=== PATIENT | female | born 1960 | race Caucasian/White ===

== ENCOUNTER → 2017-03-15 | Outpatient (CLI) | payer BC ==
--- NOTE | 2017-03-23 09:09 | MM ---
Reason for exam: screening (asymptomatic). Last mammogram was performed 2 years and 4 months ago. Physical Findings: A clinical breast exam by your physician is recommended on an annual basis and results should be correlated with mammographic findings. MG 3D Screening Mammo W/Cad Bilateral CC and MLO view(s) were taken. Prior study comparison: November 02, 2014, mammogram, performed at [facility]. October 06, 2013, mammogram, performed at [facility]. There are scattered fibroglandular densities. Asymmetric breast tissue in the left breast. No significant changes when compared with prior studies. ASSESSMENT: Benign, BI-RAD 2 RECOMMENDATION: Routine screening mammogram of both breasts in 1 year.
== END | disposition home or self-care (01) ==
LOC: RADMAMWWP 09:39
PROVIDERS: ATTEND Family Medicine
DX: Z12.31 Encounter for screening mammogram for malignant neoplasm of breast (principal)
CPT/HCPCS: 77063; G0202

== ENCOUNTER → 2018-03-22 | Outpatient (CLI) | payer BC ==
--- NOTE | 2018-03-22 14:46 | MM ---
Reason for exam: screening (asymptomatic). Last mammogram was performed 1 year ago. History: Patient is postmenopausal and had first child at age 36. Physical Findings: A clinical breast exam by your physician is recommended on an annual basis and results should be correlated with mammographic findings. MG Screening Mammo w CAD Bilateral CC and MLO view(s) were taken. Prior study comparison: March 15, 2017, bilateral MG 3d screening mammo w/cad. November 02, 2014, mammogram, performed at [facility]. The breast tissue is heterogeneously dense. This may lower the sensitivity of mammography. There is no discrete abnormality. No significant changes when compared with prior studies. ASSESSMENT: Negative, BI-RAD 1 RECOMMENDATION: Routine screening mammogram of both breasts in 1 year.
== END | disposition home or self-care (01) ==
LOC: RADMAMWWP 09:57
PROVIDERS: ATTEND Family Medicine
DX: Z12.31 Encounter for screening mammogram for malignant neoplasm of breast (principal)
CPT/HCPCS: 77067

== ENCOUNTER → 2019-05-25 | Outpatient (CLI) | payer OTHER ==
--- NOTE | 2019-05-29 16:58 | MM ---
Reason for exam: screening (asymptomatic). Last mammogram was performed 1 year and 2 months ago. History: Patient is postmenopausal and had first child at age 36. MG Screening Mammo w CAD Bilateral CC and MLO view(s) were taken. Prior study comparison: March 22, 2018, bilateral MG screening mammo w CAD. March 15, 2017, bilateral MG 3d screening mammo w/cad. There are scattered fibroglandular densities. Chronic nodularity left breast. No significant new finding when compared with prior studies. ASSESSMENT: Negative, BI-RAD 1 RECOMMENDATION: Routine screening mammogram of both breasts in 1 year.
== END | disposition home or self-care (01) ==
LOC: RADMAMWWP 08:59
PROVIDERS: ATTEND Family Medicine
DX: Z12.31 Encounter for screening mammogram for malignant neoplasm of breast (principal)
CPT/HCPCS: 77067

== ENCOUNTER 2019-05-30 08:58 | Day surgery (SDC) | payer OTHER ==
[2019-05-25 14:17] VITALS: BMI 26.4
[~2019-05-30 08:58] MED LIST: LACTATED RINGERS 1,000 ML IV SCH; LIDOCAINE 1% 20 ML VIAL (10MG/ML) FOR IV START INTRADERMA PRN
[2019-05-30 09:56] VITALS: RESP 16; TEMP 98
[2019-05-30] MEDS ORDERED: LIDOCAINE 1% INJ 10MG/ML (20 ML MDV) ONE (11:15)
[2019-05-30] MEDS ORDERED: PROPOFOL 10 MG/ML 20 ML VIAL IV ONE (11:15)
--- NOTE | 2019-05-30 11:32 | P.PCN ---
Date of Procedure: 05/30/19 Procedure(s) Performed: BRIEF HISTORY: Patient is a 58-year-old pleasant 8 female, scheduled for an elective colonoscopy as a part of screening for colorectal neoplasia. PROCEDURE PERFORMED: Colonoscopy. PREOPERATIVE DIAGNOSIS: Screening for colon cancer. IV sedation per Anesthesia. PROCEDURE: After informed consent was obtained, the patient, was brought into the endoscopy unit. IV sedation was administered by Anesthesia under continuous monitoring. Digital rectal examination was normal. Initially the Olympus CF-160 flexible video colonoscope was then inserted in the rectum, gradually advanced into the cecum without any difficulty. Careful examination was performed as the scope was gradually being withdrawn. Ileocecal valve and the appendiceal orifice were visualized and appeared normal. Prep was excellent. Mucosa of the cecum, ascending colon, transverse colon, descending colon, sigmoid colon, and rectum appeared normal. Scattered sigmoidal diverticula seen. Retroflexion was performed in the rectum and no lesions were seen. The patient tolerated the procedure well. IMPRESSION: Normal-appearing colon from rectum to cecum with no evidence of colorectal neoplasia. Scattered sigmoid diverticulosis. RECOMMENDATIONS: Findings of this examination were discussed with the patient as well as a family. She was advised to have a repeat screening colonoscopy in 10 years.
[2019-05-30 11:58] VITALS: BP 119/74; PULSE 72
== END 2019-05-30 12:11 | disposition home or self-care (01) ==
LOC: ORWHC2ENDO 08:58
PROVIDERS: ATTEND Internal Medicine Gastroenterology
DX: Z12.11 Encounter for screening for malignant neoplasm of colon (principal); K57.30 Diverticulosis of large intestine without perforation or abscess without bleeding; M54.16 Radiculopathy, lumbar region; Z79.899 Other long term (current) drug therapy
CPT/HCPCS: J2001; J2704; G0121

== ENCOUNTER → 2019-09-21 | Outpatient (CLI) | payer OTHER ==
--- NOTE | 2019-09-21 16:57 | MR ---
EXAMINATION TYPE: MR lumbar spine wo con DATE OF EXAM: 09/21/2019 COMPARISON: MR 02/04/2017 HISTORY: Low back pain TECHNIQUE: Multiplanar, multisequence images of the lumbar spine were acquired. L1-L2: Normal disc appearance without desiccation. No herniation, protrusion or disc bulging. No ca nal stenosis is present. Foramina are patent bilaterally. L2-L3: There is mild facet arthropathy causing posterior lateral mass effect on the thecal sac with h ypertrophy ligamentum flavum. No significant foraminal encroachment or spinal stenosis. No disc herni ation. L3-L4: Mild facet arthropathy. No significant spinal stenosis, foraminal encroachment. No disc hernia tion. L4-L5: Facet arthropathy with hypertrophy ligamentum flavum causes posterior lateral mass effect on t he thecal sac. Trefoil appearance of the thecal sac is noted due to posterior broad-based disc bulge causing mild anterior mass effect on the thecal sac. No significant foraminal encroachment or central stenosis. L5-S1: Similar appearance, loss of disc height signal is present, there is endplate discogenic marrow signal change, spondylosis, vacuum phenomenon as on prior. Lateral extension endplate disc complex e ncroaches upon the neural foramina greater on the right than on the left. No significant spinal steno sis. Mild posterior disc bulge contacts anterior thecal sac and possibly proximal S1 nerve roots. The re is facet arthropathy change. Lumbar segments are intact. No paraspinal masses are identified. Conus medullaris has a normal appe arance. Lumbar vertebral bodies show preserved height and alignment. IMPRESSION: Findings essentially stable compared to prior exam. Facet arthropathy. Degenerative disc disease. Mil d foraminal encroachment as described.
== END | disposition home or self-care (01) ==
LOC: RADMRIMAIN 15:25
PROVIDERS: ATTEND Physician Assistant Medical
DX: M51.36 Other intervertebral disc degeneration, lumbar region (principal); M46.96 Unspecified inflammatory spondylopathy, lumbar region; M46.97 Unspecified inflammatory spondylopathy, lumbosacral region
CPT/HCPCS: 72148

== ENCOUNTER → 2020-10-09 | Outpatient (CLI) | payer BC, OTHER ==
--- NOTE | 2020-10-13 11:30 | MM ---
Reason for exam: screening (asymptomatic). Last mammogram was performed 1 year and 4 months ago. History: Patient is postmenopausal and had first child at age 36. Physical Findings: A clinical breast exam by your physician is recommended on an annual basis and results should be correlated with mammographic findings. MG Screening Mammo w CAD Bilateral CC and MLO view(s) were taken. Prior study comparison: May 25, 2019, bilateral MG screening mammo w CAD. March 22, 2018, bilateral MG screening mammo w CAD. There are scattered fibroglandular densities. There is chronic nodularity in the left breast CC view anteriorly. No significant changes when compared with prior studies. ASSESSMENT: Negative, BI-RAD 1 RECOMMENDATION: Routine screening mammogram of both breasts in 1 year.
== END | disposition home or self-care (01) ==
LOC: RADMAMWWP 13:38
PROVIDERS: ATTEND Family Medicine
DX: Z12.31 Encounter for screening mammogram for malignant neoplasm of breast (principal)
CPT/HCPCS: 77067

== ENCOUNTER → 2021-04-11 | Outpatient (CLI) | payer OTHER ==
--- NOTE | 2021-04-11 15:03 | MR ---
EXAMINATION TYPE: MR lumbar spine wo con DATE OF EXAM: 04/11/2021 COMPARISON: 09/21/2019 HISTORY: Low back pain that goes down both legs for 10 years. Multiplanar multiecho imaging of the lumbar spine was performed without contrast. Lumbar vertebra have normal alignment. There is mild narrowing at L5-S1 disc space. There is developm entally adequate spinal canal. There is no spinal stenosis. Lumbar nerve roots appear normal. The rola ral foramina are fairly well-maintained. There is no compression fracture. There is no lumbar paraspi nal mass. Sacroiliac joints are intact. There is small posterior disc bulge at L5-S1 without impingem ent on the neural elements. IMPRESSION: Small posterior disc bulge at L5-S1 unchanged compared to old exam. No spinal stenosis. No fracture.
== END | disposition home or self-care (01) ==
LOC: RADMRIMAIN 08:34
PROVIDERS: ATTEND Physician Assistant Medical
DX: M51.17 Intervertebral disc disorders with radiculopathy, lumbosacral region (principal)
CPT/HCPCS: 72148

== ENCOUNTER 2021-05-14 23:37 | Emergency (ER) | payer OTHER ==
[2021-05-15] MEDS ORDERED: ONDANSETRON 4 MG/2 ML VIAL IVP STA (00:15)
[2021-05-15 00:37] LABS: Appearance,Urine Cloudy (Clear); Bacteria,Urine Rare /hpf; Bilirubin,Urine Negative (Negative); Blood,Urine Moderate (Negative); Calcium Oxalate Crystals,Urine Moderate /hpf; Color,Urine Yellow; Glucose,Urine (UA) Negative (Negative); Ketones,Urine Negative (Negative); Leukocyte Esterase,Urine Moderate (Negative); Mucus,Urine Moderate /hpf; Nitrite,Urine Negative (Negative); PH, Urine 5.5 (5.0-8.0); Protein,Urine Trace (Negative); RBC,Urine 141 /hpf (0-5); Squamous Epithelial Cell,Urine 3 /hpf (0-4); Urobilinogen,Urine <2.0 mg/dL (<2.0); WBC,Urine 26 /hpf (0-5)
[2021-05-15 00:43] LABS: Basophils # (A) 0.1 k/uL (0-0.2); Basophils % (A) 1 %; Eosinophils # (A) 0.2 k/uL (0-0.7); Eosinophils % (A) 2 %; HCT 41.9 % (34.0-46.0); HGB 13.5 gm/dL (11.4-16.0); Lymphocytes # (A) 3.2 k/uL (1.0-4.8); Lymphocytes % (A) 30 %; MCH 27.7 pg (25.0-35.0); MCHC 32.2 g/dL (31.0-37.0); MCV 85.9 fL (80.0-100.0); Mean Platelet Volume 7.5; Monocytes # (A) 0.6 k/uL (0-1.0); Monocytes % (A) 5 %; Neutrophils # (A) 6.1 k/uL (1.3-7.7); Neutrophils % (A) 58 %; Platelet Count 421 k/uL (150-450); RBC 4.88 m/uL (3.80-5.40); RDW 13.8 % (11.5-15.5); WBC 10.5 k/uL (3.8-10.6)
--- NOTE | 2021-05-15 00:43 | ED ---
Abdominal Pain HPI - General Chief Complaint: Abdominal Pain Stated Complaint: ABD Pain Time Seen by Provider: 05/15/21 00:15 Source: patient Mode of arrival: ambulatory Limitations: no limitations - History of Present Illness MD Complaint: abdominal pain Onset/Timin -: hour(s) Location: RUQ Radiation: none Migration to: no migration Severity: moderate Quality: other ("Gripping") Consistency: constant Improves With: nothing Worsens With: nothing Associated Symptoms: nausea - Related Data Home Medications Medication Instructions Recorded Confirmed DULoxetine HCL [Cymbalta] 60 mg PO DAILY 05/25/19 05/30/19 Gabapentin [Neurontin] 600 mg PO HS 05/25/19 05/30/19 Multivitamins, Thera [Multivitamin 1 tab PO DAILY 05/25/19 05/30/19 (formulary)] Previous Rx's Medication Instructions Recorded HYDROcodone/APAP 5-325MG [[place] 1 tab PO Q4HR PRN 3 Days #18 tab 05/15/21 5-325] Ondansetron Odt [Zofran ODT] 4 mg PO Q8HR PRN #10 tab 05/15/21 Tamsulosin [Flomax] 0.4 mg PO DAILY #14 cap 05/15/21 Allergies Allergy/AdvReac Type Severity Reaction Status Date / Time No Known Allergies Allergy Verified 05/14/21 23:50 Review of Systems ROS Statement: Those systems with pertinent positive or pertinent negative responses have been documented in the HPI. ROS Other: All systems not noted in ROS Statement are negative. Constitutional: Denies: fever, chills Respiratory: Denies: cough, dyspnea Cardiovascular: Denies: chest pain, palpitations, edema Gastrointestinal: Reports: abdominal pain, nausea. Denies: vomiting, diarrhea, constipation, melena, hematochezia Genitourinary: Denies: dysuria, frequency, hematuria Musculoskeletal: Denies: back pain Skin: Denies: rash Neurological: Denies: headache, weakness, numbness Past Medical History Past Medical History: Hyperlipidemia History of Any Multi-Drug Resistant Organisms: None Reported Past Surgical History: No Surgical Hx Reported Past Psychological History: No Psychological Hx Reported Smoking Status: Never smoker Past Alcohol Use History: None Reported Past Drug Use History: None Reported General Exam Limitations: no limitations General appearance: alert, in no apparent distress Head exam: Present: atraumatic, normocephalic Eye exam: Present: normal appearance. Absent: scleral icterus, conjunctival injection ENT exam: Present: normal oropharynx Respiratory exam: Present: normal lung sounds bilaterally. Absent: respiratory distress, wheezes, rales, rhonchi, stridor Cardiovascular Exam: Present: regular rate, normal rhythm, normal heart sounds. Absent: systolic murmur, diastolic murmur, rubs, gallop GI/Abdominal exam: Present: soft, tenderness (Right upper quadrant). Absent: distended, guarding, rebound, rigid, mass, pulsatile mass, hernia Extremities exam: Present: normal inspection, normal capillary refill. Absent: pedal edema, calf tenderness Back exam: Present: normal inspection. Absent: CVA tenderness (R), CVA tenderness (L) Neurological exam: Present: alert Skin exam: Present: warm, dry, intact, normal color. Absent: rash Course Vital Signs 05/14/21 05/15/21 23:46 01:27 Temperature 98.3 F 98.4 F Pulse Rate 86 94 Respiratory 17 18 Rate Blood Pressure 118/74 122/69 O2 Sat by Pulse 97 96 Oximetry Medical Decision Making - Lab Data Result diagrams: 05/15/21 00:25 05/15/21 00:25 Lab Results 05/14/21 05/15/21 05/15/21 Range/Units 23:53 00:25 00:25 WBC 10.5 (3.8-10.6) k/uL RBC 4.88 (3.80-5.40) m/uL Hgb 13.5 (11.4-16.0) gm/dL Hct 41.9 (34.0-46.0) % MCV 85.9 (80.0-100.0) fL MCH 27.7 (25.0-35.0) pg MCHC 32.2 (31.0-37.0) g/dL RDW 13.8 (11.5-15.5) % Plt Count 421 (150-450) k/uL MPV 7.5 Neutrophils % 58 % Lymphocytes % 30 % Monocytes % 5 % Eosinophils % 2 % Basophils % 1 % Neutrophils # 6.1 (1.3-7.7) k/uL Lymphocytes # 3.2 (1.0-4.8) k/uL Monocytes # 0.6 (0-1.0) k/uL Eosinophils # 0.2 (0-0.7) k/uL Basophils # 0.1 (0-0.2) k/uL Sodium 139 (137-145) mmol/L Potassium 4.1 (3.5-5.1) mmol/L Chloride 99 (98-107) mmol/L Carbon Dioxide 30 (22-30) mmol/L Anion Gap 10 mmol/L BUN 19 H (7-17) mg/dL Creatinine 0.71 (0.52-1.04) mg/dL Est GFR (CKD-EPI)AfAm >90 (>60 ml/min/1.73 sqM) Est GFR (CKD-EPI)NonAf >90 (>60 ml/min/1.73 sqM) Glucose 114 H (74-99) mg/dL Calcium 9.9 (8.4-10.2) mg/dL Total Bilirubin 0.2 (0.2-1.3) mg/dL AST 33 (14-36) U/L ALT 27 (4-34) U/L Alkaline Phosphatase 105 (38-126) U/L Total Protein 7.0 (6.3-8.2) g/dL Albumin 4.5 (3.5-5.0) g/dL Amylase 84 (30-110) U/L Lipase 117 (23-300) U/L Urine Color Yellow Urine Appearance Cloudy H (Clear) Urine pH 5.5 (5.0-8.0) Ur Specific Ocate 1.020 (1.001-1.035) Urine Protein Trace H (Negative) Urine Glucose (UA) Negative (Negative) Urine Ketones Negative (Negative) Urine Blood Moderate H (Negative) Urine Nitrite Negative (Negative) Urine Bilirubin Negative (Negative) Urine Urobilinogen <2.0 (<2.0) mg/dL Ur Leukocyte Esterase Moderate H (Negative) Urine RBC 141 H (0-5) /hpf Urine WBC 26 H (0-5) /hpf Ur Squamous Epith Cells 3 (0-4) /hpf Calcium Oxalate Crystal Moderate H (None) /hpf Urine Bacteria Rare H (None) /hpf Urine Mucus Moderate H (None) /hpf Disposition Clinical Impression: Kidney stone on right side Disposition: HOME SELF-CARE Condition: Good Instructions (If sedation given, give patient instructions): Kidney Stones (ED) Prescriptions: Tamsulosin [Flomax] 0.4 mg PO DAILY #14 cap HYDROcodone/APAP 5-325MG [[place] 5-325] 1 tab PO Q4HR PRN 3 Days #18 tab PRN Reason: Pain Ondansetron Odt [Zofran ODT] 4 mg PO Q8HR PRN #10 tab PRN Reason: Nausea Is patient prescribed a controlled substance at d/c from ED?: Yes When asked, does pt state using other controlled substances?: No If prescribed controlled substance>3 days was MAPS reviewed?: Prescribed <3 Days If opioid is for acute pain is fill amount 7 days or less?: Yes If Rx opioid, was Start Talking consent form obtained?: Yes Referrals: Chan Hernandez DO [Primary Care Provider] - 1-2 days Henrique Licona MD [STAFF PHYSICIAN] - 1-2 days
[2021-05-15 01:06] LABS: ALT 27 U/L (4-34); AST 33 U/L (14-36); African American GFR (CKD) >90 (>60 ml/min/1.73 sqM); Albumin 4.5 g/dL (3.5-5.0); Alkaline Phosphatase 105 U/L (38-126); Amylase 84 U/L (30-110); Anion Gap 10 mmol/L; Blood Urea Nitrogen 19 mg/dL (7-17); Calcium 9.9 mg/dL (8.4-10.2); Carbon Dioxide 30 mmol/L (22-30); Chloride 99 mmol/L (98-107); Glucose 114 mg/dL (74-99); Lipase 117 U/L (23-300); Non-African American GFR(CKD) >90 (>60 ml/min/1.73 sqM); Potassium 4.1 mmol/L (3.5-5.1); Sodium 139 mmol/L (137-145); Total Bilirubin 0.2 mg/dL (0.2-1.3)
[2021-05-15] MEDS ORDERED: HYDROmorphone 0.5 MG/0.5 ML SYRINGE IVP STA ×2 (01:12→02:29)
[2021-05-15 01:30] VITALS: RESP 18
--- NOTE | 2021-05-15 02:12 | US ---
EXAMINATION TYPE: US abdomen limited DATE OF EXAM: 05/15/2021 COMPARISON: NONE CLINICAL HISTORY: RUQ pain. RUQ pain. EXAM MEASUREMENTS: Liver Length: 15.3 cm Gallbladder Wall: 0.29 cm CBD: 0.53 cm Right Kidney: 10.4 x 5.3 x 5.0 cm Limited due to gas. Pancreas: Portions seen appear wnl. Limited. Liver: Appears coarse in echotexture. Gallbladder: Hyperechoic focus seen adjacent to versus connected to the gallbladder wall: 0.4 x 0.4 x 0.5 cm. Evidence for sonographic Richards's sign: Yes CBD: Appears wnl. Right Kidney: Hyperechoic focus seen with posterior shadowing and twinkle artifact: 0.6 x 0.7 x 0.4 cm. Renal pelvis appears anechoic medially, possible hydronephrosis appearance. IMPRESSION: There is gallstone at the gallbladder fundus. No dilated ducts. No focal liver defect. No pancreatic mass.
--- NOTE | 2021-05-15 03:28 | CT ---
EXAMINATION TYPE: CT abdomen pelvis wo con DATE OF EXAM: 05/15/2021 COMPARISON: None HISTORY: right falnk pain CT DLP: 561.3 mGycm Automated exposure control for dose reduction was used. Images obtained from the diaphragm to the floor the pelvis with no contrast. There is minimal subsegmental atelectasis at the lung bases. Heart size is normal. There is no perica rdial effusion. There is hiatal hernia. Stomach is intact. Liver spleen pancreas gallbladder appear i ntact. The bile ducts are not dilated. There is no adrenal mass. Kidneys show right side hydronephrosis and hydroureter. There are 1 or 2 4 mm calculi in the interpolar right kidney. There is 5.5 mm obstructing calculus in the proximal right ureter. Distal right ureter is not dilated. Bladder distends smoothly. There is no inguinal hernia. There is no free fluid in the pelvis. There are a few sigmoid diverticula. There is no diverticulitis. There is no mesenteric edema. There is no ascites or free air. There is no evidence of a bowel obstru ction. Appendix is posterior and medial and appears normal. Lumbar vertebra have normal alignment. Posterior elements are intact. There is no compression fractur e. There is vacuum disc at L5-S1. There is mild facet arthropathy at L4-5 and L5-S1. The bony pelvis is intact. The hip joints are intact. There is no hip dysplasia. IMPRESSION: Obstructing calculus proximal right ureter with right-sided moderate hydronephrosis. Additional small calculi in the right kidney. No evidence of left-sided obstruction. There is 1 mm calculus anterior left kidney. normal appendix.
[2021-05-15] MEDS ORDERED: TAMSULOSIN 0.4 MG CAP.ER.24H PO STA (03:43)
[2021-05-15 04:41] VITALS: BP 115/61; PULSE 94; TEMP 98.6
== END 2021-05-15 04:30 | disposition home or self-care (01) ==
LOC: EC 23:37
DX: N13.2 Hydronephrosis with renal and ureteral calculous obstruction (principal); E78.5 Hyperlipidemia, unspecified
CPT/HCPCS: 96376 ×2; 96374 ×2; 96375 ×2; 99284 ×2; 36415; 80053; 82150; 83690; 85025; 81001; 87086; 76705; 74176; J2405; J1170

== ENCOUNTER 2021-05-22 18:05 | Inpatient (IN) | payer OTHER ==
[2021-05-22] MEDS ORDERED: SODIUM CHLORIDE 0.9% 1,000 ML IV STA ×2 (19:42)
[2021-05-22] MEDS ORDERED: cefTRIAXone IN SWFI 1,000 MG/10 ML SYRINGE IVP STA (19:42)
[2021-05-22] MEDS ORDERED: FAMOTIDINE 20 MG/2 ML VIAL IV STA (19:43)
[2021-05-22] MEDS ORDERED: ONDANSETRON 4 MG/2 ML VIAL IVP STA (19:43)
[2021-05-22 20:16] LABS: Albumin 4.2 g/dL (3.5-5.0); Calcium 9.3 mg/dL (8.4-10.2); Potassium 4.2 mmol/L (3.5-5.1); Total Bilirubin 0.8 mg/dL (0.2-1.3); Total Protein 6.8 g/dL (6.3-8.2)
[2021-05-22 20:24] LABS: Basophils % (A) 2 %; Eosinophils # (A) 0.1 k/uL (0-0.7); Eosinophils % (A) 2 %; HCT 41.2 % (34.0-46.0); HGB 13.1 gm/dL (11.4-16.0); Lymphocytes # (A) 0.2 k/uL (1.0-4.8); Lymphocytes % (A) 10 %; MCH 28.1 pg (25.0-35.0); MCHC 31.9 g/dL (31.0-37.0); Mean Platelet Volume 7.5; Monocytes # (A) 0.2 k/uL (0-1.0); Monocytes % (A) 7 %; Neutrophils # (A) 1.9 k/uL (1.3-7.7); Neutrophils % (A) 78 %; Platelet Count 339 k/uL (150-450); RBC 4.68 m/uL (3.80-5.40); RDW 13.2 % (11.5-15.5); WBC 2.4 k/uL (3.8-10.6)
[2021-05-22 20:30] LABS: Amorphous Sediment,Urine Rare /hpf; Appearance,Urine Cloudy (Clear); Bacteria,Urine Rare /hpf; Bilirubin,Urine 1+ (Negative); Blood,Urine Negative (Negative); Color,Urine Dark Yellow; Glucose,Urine (UA) Negative (Negative); Hyaline Casts,Urine 1 /lpf (0-2); Ketones,Urine Trace (Negative); Leukocyte Esterase,Urine Small (Negative); Mucus,Urine Occasional /hpf; Nitrite,Urine Negative (Negative); Protein,Urine 2+ (Negative); RBC,Urine 10 /hpf (0-5); Specific Gravity,Urine 1.042 (1.001-1.035); Squamous Epithelial Cell,Urine 7 /hpf (0-4); WBC,Urine 10 /hpf (0-5)
--- NOTE | 2021-05-22 21:02 | US ---
EXAMINATION TYPE: US kidneys/renal and bladder DATE OF EXAM: 05/22/2021 COMPARISON: NONE CLINICAL HISTORY: right sided kidney stone. diagnosed with right renal stone and hydronephrosis last week, pain today EXAM MEASUREMENTS: Right Kidney: 10.9 x 4.8 x 4.7 cm Left Kidney: 10.3 x 5.0 x 6.1 cm Right Kidney: no visible stone seen on today's exam but moderate hydronephrosis persists Left Kidney: No hydronephrosis or masses seen Bladder: wnl Bilateral Jets seen: only left IMPRESSION: No evidence of a renal mass. No ureteral jet seen on the right side consistent with obstruction. There is right-sided hydronephrosis not changed compared to CT scan of 05/15/2021.
--- NOTE | 2021-05-22 21:26 | ED ---
Abdominal Pain HPI - General Chief Complaint: Abdominal Pain Stated Complaint: Kidney stones, fever Time Seen by Provider: 05/22/21 19:13 Source: patient Mode of arrival: ambulatory Limitations: physical limitation - History of Present Illness Initial Comments: 60-year-old female presents to the emergency department with a chief complaint of abdominal pain. Patient reports about one week ago she was diagnosed with a kidney stone, right-sided. States it was a 5 mm stone that was able to pass by itself several days later. States she was discharged with Zofran, analgesics and Flomax. States this worked well in hopes limited to kidney stone. States she use a strainer but was not able to obtain any stones. States one day after she had resolution the patient went to her primary care physician where she was diagnosed with a urinary tract infection and was started on Bactrim. States she has taken 6 doses of the medication but continues to have fever over the last 3- 4 days. States it was as high as 101F. Does report nausea with several ep isodes of nonbloody and nonbloody vomiting. Denies hematuria, hematochezia or melena. She was advised to come to emergency department for IV antibiotics by her primary care physician. - Related Data Home Medications Medication Instructions Recorded Confirmed DULoxetine HCL [Cymbalta] 60 mg PO DAILY 05/25/19 05/30/19 Gabapentin [Neurontin] 600 mg PO HS 05/25/19 05/30/19 Multivitamins, Thera [Multivitamin 1 tab PO DAILY 05/25/19 05/30/19 (formulary)] Previous Rx's Medication Instructions Recorded HYDROcodone/APAP 5-325MG [[place] 1 tab PO Q4HR PRN 3 Days #18 tab 05/15/21 5-325] Ondansetron Odt [Zofran ODT] 4 mg PO Q8HR PRN #10 tab 05/15/21 Tamsulosin [Flomax] 0.4 mg PO DAILY #14 cap 05/15/21 Allergies Allergy/AdvReac Type Severity Reaction Status Date / Time No Known Allergies Allergy Verified 05/22/21 19:00 Review of Systems ROS Statement: Those systems with pertinent positive or pertinent negative responses have been documented in the HPI. ROS Other: All systems not noted in ROS Statement are negative. Past Medical History Past Medical History: Hyperlipidemia History of Any Multi-Drug Resistant Organisms: None Reported Past Surgical History: No Surgical Hx Reported Past Psychological History: No Psychological Hx Reported Smoking Status: Never smoker Past Alcohol Use History: None Reported Past Drug Use History: None Reported General Exam Limitations: no limitations General appearance: alert, in no apparent distress Head exam: Present: atraumatic, normocephalic, normal inspection Eye exam: Present: normal appearance, PERRL, EOMI Pupils: Present: normal accommodation ENT exam: Present: normal exam, normal oropharynx, mucous membranes moist Neck exam: Present: normal inspection, full ROM. Absent: tenderness, lymphadenopathy Respiratory exam: Present: normal lung sounds bilaterally. Absent: respiratory distress, wheezes, rales, rhonchi, stridor Cardiovascular Exam: Present: regular rate, normal rhythm, normal heart sounds. Absent: systolic murmur GI/Abdominal exam: Present: soft, tenderness (Positive right upper quadrant). Absent: distended, guarding, rebound, rigid Extremities exam: Present: normal inspection, full ROM, normal capillary refill. Absent: tenderness, pedal edema, joint swelling Back exam: Present: normal inspection, full ROM, CVA tenderness (R) (Mild). Absent: tenderness, CVA tenderness (L), muscle spasm, paraspinal tenderness, vertebral tenderness Neurological exam: Present: alert, oriented X3 Psychiatric exam: Present: normal affect, normal mood Skin exam: Present: warm, dry, intact, normal color Course Vital Signs 05/22/21 05/22/21 18:55 20:25 Temperature 98.3 F Pulse Rate 98 96 Respiratory 18 20 Rate Blood Pressure 120/77 115/60 O2 Sat by Pulse 97 96 Oximetry Medical Decision Making - Medical Decision Making 60-year-old female presents to the emergency department with a chief complaint of abdominal pain. On physical examination, positive Richards sign. Mild right CVA tenderness. Patient is leukopenic. She also has decreased renal function. Also elevated liver enzymes compared to most recent laboratory work. Right upper quadrant ultrasound obtained shows no acute findings. Kidney ultrasound showed hydronephrosis on the right side. UA shows mild UTI. Urine culture pending. Blood cultures pending. Patient was given appropriate IV fluids based on her weight. She was also started on 1 g Rocephin. Lactic acid within normal limits. I spoke with will admit the patient further medical management. Case discussed with - Lab Data Result diagrams: 05/22/21 19:57 05/22/21 19:57 Lab Results 05/22/21 05/22/21 05/22/21 Range/Units 19:57 19:57 19:57 WBC 2.4 L (3.8-10.6) k/uL RBC 4.68 (3.80-5.40) m/uL Hgb 13.1 (11.4-16.0) gm/dL Hct 41.2 (34.0-46.0) % MCV 88.0 (80.0-100.0) fL MCH 28.1 (25.0-35.0) pg MCHC 31.9 (31.0-37.0) g/dL RDW 13.2 (11.5-15.5) % Plt Count 339 (150-450) k/uL MPV 7.5 Neutrophils % 78 % Lymphocytes % 10 % Monocytes % 7 % Eosinophils % 2 % Basophils % 2 % Neutrophils # 1.9 (1.3-7.7) k/uL Lymphocytes # 0.2 L (1.0-4.8) k/uL Monocytes # 0.2 (0-1.0) k/uL Eosinophils # 0.1 (0-0.7) k/uL Basophils # 0.0 (0-0.2) k/uL Sodium 135 L (137-145) mmol/L Potassium 4.2 (3.5-5.1) mmol/L Chloride 99 (98-107) mmol/L Carbon Dioxide 27 (22-30) mmol/L Anion Gap 9 mmol/L BUN 18 H (7-17) mg/dL Creatinine 1.39 H (0.52-1.04) mg/dL Est GFR (CKD-EPI)AfAm 48 (>60 ml/min/1.73 sqM) Est GFR (CKD-EPI)NonAf 42 (>60 ml/min/1.73 sqM) Glucose 139 H (74-99) mg/dL Plasma Lactic Acid Carlos 1.0 (0.7-2.0) mmol/L Calcium 9.3 (8.4-10.2) mg/dL Total Bilirubin 0.8 (0.2-1.3) mg/dL AST 467 H (14-36) U/L ALT 328 H (4-34) U/L Alkaline Phosphatase 362 H (38-126) U/L Total Protein 6.8 (6.3-8.2) g/dL Albumin 4.2 (3.5-5.0) g/dL Urine Color Urine Appearance (Clear) Urine pH (5.0-8.0) Ur Specific [place] (1.001-1.035) Urine Protein (Negative) Urine Glucose (UA) (Negative) Urine Ketones (Negative) Urine Blood (Negative) Urine Nitrite (Negative) Urine Bilirubin (Negative) Urine Urobilinogen (<2.0) mg/dL Ur Leukocyte Esterase (Negative) Urine RBC (0-5) /hpf Urine WBC (0-5) /hpf Ur Squamous Epith Cells (0-4) /hpf Amorphous Sediment (None) /hpf Urine Bacteria (None) /hpf Hyaline Casts (0-2) /lpf Urine Mucus (None) /hpf 05/22/21 Range/Units 19:57 WBC (3.8-10.6) k/uL RBC (3.80-5.40) m/uL Hgb (11.4-16.0) gm/dL Hct (34.0-46.0) % MCV (80.0-100.0) fL MCH (25.0-35.0) pg MCHC (31.0-37.0) g/dL RDW (11.5-15.5) % Plt Count (150-450) k/uL MPV Neutrophils % % Lymphocytes % % Monocytes % % Eosinophils % % Basophils % % Neutrophils # (1.3-7.7) k/uL Lymphocytes # (1.0-4.8) k/uL Monocytes # (0-1.0) k/uL Eosinophils # (0-0.7) k/uL Basophils # (0-0.2) k/uL Sodium (137-145) mmol/L Potassium (3.5-5.1) mmol/L Chloride (98-107) mmol/L Carbon Dioxide (22-30) mmol/L Anion Gap mmol/L BUN (7-17) mg/dL Creatinine (0.52-1.04) mg/dL Est GFR (CKD-EPI)AfAm (>60 ml/min/1.73 sqM) Est GFR (CKD-EPI)NonAf (>60 ml/min/1.73 sqM) Glucose (74-99) mg/dL Plasma Lactic Acid Carlos (0.7-2.0) mmol/L Calcium (8.4-10.2) mg/dL Total Bilirubin (0.2-1.3) mg/dL AST (14-36) U/L ALT (4-34) U/L Alkaline Phosphatase (38-126) U/L Total Protein (6.3-8.2) g/dL Albumin (3.5-5.0) g/dL Urine Color Dark Yellow Urine Appearance Cloudy H (Clear) Urine pH 6.0 (5.0-8.0) Ur Specific [place] 1.042 H (1.001-1.035) Urine Protein 2+ H (Negative) Urine Glucose (UA) Negative (Negative) Urine Ketones Trace H (Negative) Urine Blood Negative (Negative) Urine Nitrite Negative (Negative) Urine Bilirubin 1+ H (Negative) Urine Urobilinogen 12.0 (<2.0) mg/dL Ur Leukocyte Esterase Small H (Negative) Urine RBC 10 H (0-5) /hpf Urine WBC 10 H (0-5) /hpf Ur Squamous Epith Cells 7 H (0-4) /hpf Amorphous Sediment Rare H (None) /hpf Urine Bacteria Rare H (None) /hpf Hyaline Casts 1 (0-2) /lpf Urine Mucus Occasional H (None) /hpf Disposition Clinical Impression: Urinary tract infection, Transaminitis, Nausea & vomiting, Right upper quadrant pain Disposition: ADMITTED IP TO THIS [facility] Condition: Fair Instructions (If sedation given, give patient instructions): Abdominal Pain (ED) Is patient prescribed a controlled substance at d/c from ED?: No Referrals: Chan Hernandez DO [Primary Care Provider] - 1-2 days Time of Disposition: 22:17
--- NOTE | 2021-05-22 21:38 | US ---
EXAMINATION TYPE: US gallbladder DATE OF EXAM: 05/22/2021 COMPARISON: NONE CLINICAL HISTORY: ruq pain. right sided pain and nausea, h/o right renal stone last week and hydronep hrosis EXAM MEASUREMENTS: Liver Length: 15.9 cm Gallbladder Wall: 0.3 cm CBD: 0.6 cm Right Kidney: 11.6 x 4.8 x 5.0 cm Pancreas: limited views appear wnl Liver: wnl Gallbladder: no obvious stone seen on today's exam, borderline wall thickness Evidence for sonographic Richards's sign: yes CBD: wnl Right Kidney: hydronephrosis IMPRESSION: No gallstones or dilated ducts. There is right-sided hydronephrosis.
[2021-05-22] MEDS ORDERED: ACETAMINOPHEN TAB 325 MG TAB PO PRN (22:13)
[2021-05-22] MEDS ORDERED: MORPHINE SULFATE 4 MG/ML SYRINGE IV PRN (22:13)
[2021-05-22] MEDS ORDERED: IBUPROFEN 400 MG TAB PO PRN (22:13)
[2021-05-22] MEDS ORDERED: LORazepam 2 MG/ML INJ IV PRN (22:13)
[2021-05-22] MEDS ORDERED: NALOXONE 0.4 MG/ML 1 ML VIAL IV PRN (22:13)
[2021-05-22] MEDS: ONDANSETRON 4 MG/2 ML VIAL IVP PRN (22:58)
[2021-05-22] MEDS: SODIUM CHLORIDE 0.9% 1,000 ML IV SCH (23:48)
[2021-05-23] MEDS: ONDANSETRON 4 MG/2 ML VIAL IVP PRN ×2 (09:17→15:44)
[2021-05-23] MEDS ORDERED: LORATADINE 10 MG TAB PO PRN (12:55)
[2021-05-23] MEDS ORDERED: CYCLOBENZAPRINE 5 MG TAB PO PRN (12:55)
[2021-05-23] MEDS: DULoxetine HCL 60 MG CAPSULE.DR PO SCH (13:41)
--- NOTE | 2021-05-23 14:09 | P.HPIM ---
History of Present Illness Patient is a pleasant 60-year-old female came in with the complaints of continued fevers. Patient was diagnosed with right-sided kidney stone about 5 mm a few days ago after her which patient was discharged home and patient was having fevers at home because of which are primary care physician believe patient has an infected stone because of which patient was given Bactrim in spite of back and the patient continued to have fevers because of which patient came to ER. Patient's urine is not significantly abnormal although there was right-sided hydronephrosis evident on the ultrasound of the abdomen. Patient the urine is mostly consistent with contaminated urine sample but patient is being treated with antibiotics because of which I do not expect abnormal urine analysis anyway. Patient denied any cough. Patient denied any significant dysuria suprapubic pain. There were a few RBC and oblivious in the urine. REVIEW OF SYSTEMS: CONSTITUTIONAL: No fever, no malaise, no fatigue. HEENT: No recent visual problems or hearing problems. Denied any sore throat. CARDIOVASCULAR: No chest pain, orthopnea, PND, no palpitations, no syncope. PULMONARY: No shortness of breath, no cough, no hemoptysis. GASTROINTESTINAL: No diarrhea, no nausea, no vomiting, no abdominal pain. NEUROLOGICAL: No headaches, no weakness, no numbness. HEMATOLOGICAL: Denies any bleeding or petechiae. GENITOURINARY: Denies any burning micturition, frequency, or urgency. MUSCULOSKELETAL/RHEUMATOLOGICAL: Denies any joint pain, swelling, or any muscle pain. ENDOCRINE: Denies any polyuria or polydipsia. The rest of the 14-point review of systems is negative. PHYSICAL EXAMINATION: GENERAL: The patient is alert and oriented x3, not in any acute distress. Well developed, well nourished. HEENT: Pupils are round and equally reacting to light. EOMI. No scleral icterus. No conjunctival pallor. Normocephalic, atraumatic. No pharyngeal erythema. No thyromegaly. CARDIOVASCULAR: S1 and S2 present. No murmurs, rubs, or gallops. PULMONARY: Chest is clear to auscultation, no wheezing or crackles. ABDOMEN: Soft, nontender, nondistended, normoactive bowel sounds. No palpable organomegaly. MUSCULOSKELETAL: No joint swelling or deformity. EXTREMITIES: No cyanosis, clubbing, or pedal edema. NEUROLOGICAL: Gross neurological examination did not reveal any focal deficits. SKIN: No rashes. Assessment and plan -Possibility of UTI, pyelonephritis which cannot be ruled out considering her fever as a didn't find any other source fever. Patient will be continued on Rocephin infectious disease will be consulted. -Elevated creatinine or renal failure acute: Possibly secondary to Bactrim this can be a false elevation of creatinine from Bactrim are acute renal failure from Bactrim. Bactrim will be this continued and patient will be can you done IV fluids. -Right-sided hydronephrosis urology will be consulted patient appears to have persistent nephrolithiasis -Hyperlipidemia -Mild hyponatremia secondary to Bactrim -Elevated liver enzymes as per the patient is a chronic, is under the liver did not show any significant abnormality. And this can be related to Bactrim as well with repeat the compressive metabolic profile tomorrow again make sure liver enzymes are not going up patient had hepatitis panel as an outpatient [facility] ch was not abnormal as per the patient -tachycardia secondary to fever which is resolved now DVT prophylaxis: Early ambulation Past Medical History Past Medical History: Hyperlipidemia History of Any Multi-Drug Resistant Organisms: None Reported Past Surgical History: No Surgical Hx Reported Past Anesthesia/Blood Transfusion Reactions: No Reported Reaction Past Psychological History: No Psychological Hx Reported Smoking Status: Never smoker Past Alcohol Use History: None Reported Past Drug Use History: None Reported Medications and Allergies Home Medications Medication Instructions Recorded Confirmed Type DULoxetine HCL [Cymbalta] 60 mg PO DAILY 05/25/19 05/22/21 History Gabapentin [Neurontin] 600 mg PO HS 05/25/19 05/22/21 History Multivitamins, Thera [Multivitamin 1 tab PO DAILY 05/25/19 05/22/21 History (formulary)] Tamsulosin [Flomax] 0.4 mg PO DAILY #14 cap 05/15/21 05/22/21 Rx Cyclobenzaprine [Flexeril] 5 mg PO TID PRN 05/22/21 05/22/21 History Ergocalciferol (Vitamin D2) 1,250 mcg PO WEEKLY 05/22/21 05/22/21 History [Drisdol (50,000 Iu)] Levocetirizine Dihydrochloride 5 mg PO DAILY PRN 05/22/21 05/22/21 History [Xyzal] Omeprazole 20 mg PO DAILY 05/22/21 05/22/21 History Sulfamethox-Tmp 800-160Mg [Bactrim 1 tab PO Q12HR 05/22/21 05/22/21 History DS 800-160 mg] Allergies Allergy/AdvReac Type Severity Reaction Status Date / Time No Known Allergies Allergy Verified 05/22/21 22:27 Physical Exam Vitals: Vital Signs Temp Pulse Pulse Resp BP BP Pulse Ox 05/23/21 08:00 102 H 16 05/23/21 07:00 98.4 F 102 H 16 113/69 94 L 05/23/21 02:20 99.7 F H 132 H 16 103/67 96 05/23/21 00:22 93 16 05/22/21 23:18 98.3 F 93 16 127/79 97 05/22/21 22:00 100 20 116/64 97 05/22/21 21:00 101 H 20 115/73 98 05/22/21 20:25 96 20 115/60 96 05/22/21 18:55 98.3 F 98 18 120/77 97 Intake and Output 05/22/21 05/23/21 05/23/21 22:59 06:59 14:59 Intake Total 180 Balance 180 Intake: Oral 180 Other: Voiding Method Toilet Toilet # Voids 2 Weight 68.039 kg Results CBC & Chem 7: 05/22/21 19:57 05/22/21 19:57 Labs: Abnormal Lab Results - Last 24 Hours (Table) 05/22/21 05/22/21 05/22/21 Range/Units 19:57 19:57 19:57 WBC 2.4 L (3.8-10.6) k/uL Lymphocytes # 0.2 L (1.0-4.8) k/uL Sodium 135 L (137-145) mmol/L BUN 18 H (7-17) mg/dL Creatinine 1.39 H (0.52-1.04) mg/dL Glucose 139 H (74-99) mg/dL AST 467 H (14-36) U/L ALT 328 H (4-34) U/L Alkaline Phosphatase 362 H (38-126) U/L Urine Appearance Cloudy H (Clear) Ur Specific [place] 1.042 H (1.001-1.035) Urine Protein 2+ H (Negative) Urine Ketones Trace H (Negative) Urine Bilirubin 1+ H (Negative) Ur Leukocyte Esterase Small H (Negative) Urine RBC 10 H (0-5) /hpf Urine WBC 10 H (0-5) /hpf Ur Squamous Epith Cells 7 H (0-4) /hpf Amorphous Sediment Rare H (None) /hpf Urine Bacteria Rare H (None) /hpf Urine Mucus Occasional H (None) /hpf Thrombosis Risk Factor Assmnt - Choose All That Apply Any of the Below Risk Factors Present?: Yes Each Factor Represents 1 point: Age 41-60 years, Obesity (BMI >25) Other Risk Factors: No Other congenital or acquired thrombophilia - If yes, enter type in comment: No Thrombosis Risk Factor Assessment Total Risk Factor Score: 2 Thrombosis Risk Factor Assessment Level: Low Risk
[2021-05-23] MEDS: SODIUM CHLORIDE 0.9% 1,000 ML IV SCH (16:13)
[2021-05-23] MEDS: HYDROmorphone 0.5 MG/0.5 ML SYRINGE IVP PRN (17:37)
--- NOTE | 2021-05-23 18:37 | P.GSCN ---
History of Present Illness Consult date: 05/23/21 Reason for Consult: Right hydronephrosis Requesting physician: Jose Short History of present illness: The patient is a 60-year-old white female with no prior history of UTIs or urolithiasis. She was evaluated in the emergency room on May 15 for right flank pain. A computed tomography scan showed right hydroureteronephrosis due to a 5.5 mm right proximal ureteral calculus. She was discharged home with prescriptions for tamsulosin, Zofran, and [place]. A urine culture was negative. However, she developed a fever and was treated with Bactrim. She presented back to the emergency room today with generalized weakness and body aches. Ultrasound shows persistent right hydronephrosis, and there are multiple laboratory value abnormalities. She was admitted for further evaluation and treatment. Review of Systems - Constitutional Reports chills, Reports malaise - Gastrointestinal Reports loss of appetite - Genitourinary Genitourinary: Reports flank pain, Reports kidney stones, Denies dysuria, Denies hematuria Past Medical History Past Medical History: Hyperlipidemia History of Any Multi-Drug Resistant Organisms: None Reported Past Surgical History: No Surgical Hx Reported Past Anesthesia/Blood Transfusion Reactions: No Reported Reaction Past Psychological History: No Psychological Hx Reported Smoking Status: Never smoker Past Alcohol Use History: None Reported Past Drug Use History: None Reported Medications and Allergies Home Medications Medication Instructions Recorded Confirmed Type DULoxetine HCL [Cymbalta] 60 mg PO DAILY 05/25/19 05/22/21 History Gabapentin [Neurontin] 600 mg PO HS 05/25/19 05/22/21 History Multivitamins, Thera [Multivitamin 1 tab PO DAILY 05/25/19 05/22/21 History (formulary)] Tamsulosin [Flomax] 0.4 mg PO DAILY #14 cap 05/15/21 05/22/21 Rx Cyclobenzaprine [Flexeril] 5 mg PO TID PRN 05/22/21 05/22/21 History Ergocalciferol (Vitamin D2) 1,250 mcg PO WEEKLY 05/22/21 05/22/21 History [Drisdol (50,000 Iu)] Levocetirizine Dihydrochloride 5 mg PO DAILY PRN 05/22/21 05/22/21 History [Xyzal] Omeprazole 20 mg PO DAILY 05/22/21 05/22/21 History Sulfamethox-Tmp 800-160Mg [Bactrim 1 tab PO Q12HR 05/22/21 05/22/21 History DS 800-160 mg] Allergies Allergy/AdvReac Type Severity Reaction Status Date / Time No Known Allergies Allergy Verified 05/22/21 22:27 Surgical - Exam Vital Signs Temp Pulse Resp BP Pulse Ox 98.3 F 98 18 120/77 97 05/22/21 18:55 05/22/21 18:55 05/22/21 18:55 05/22/21 18:55 05/22/21 18:55 - General well developed, well nourished, moderate distress - Neck no masses, trachea midline - Respiratory normal respiratory effort - Abdomen Soft, non-distended, no mass. Diffuse tenderness, primarily right-sided, with no guarding or rebound. - Psychiatric oriented to time, oriented to person, oriented to place, speech is normal, memory intact Results - Labs 05/22/21 19:57 05/22/21 19:57 Abnormal Lab Results - Last 24 Hours (Table) 05/22/21 05/22/21 05/22/21 Range/Units 19:57 19:57 19:57 WBC 2.4 L (3.8-10.6) k/uL Lymphocytes # 0.2 L (1.0-4.8) k/uL Sodium 135 L (137-145) mmol/L BUN 18 H (7-17) mg/dL Creatinine 1.39 H (0.52-1.04) mg/dL Glucose 139 H (74-99) mg/dL AST 467 H (14-36) U/L ALT 328 H (4-34) U/L Alkaline Phosphatase 362 H (38-126) U/L Urine Appearance Cloudy H (Clear) Ur Specific [place] 1.042 H (1.001-1.035) Urine Protein 2+ H (Negative) Urine Ketones Trace H (Negative) Urine Bilirubin 1+ H (Negative) Ur Leukocyte Esterase Small H (Negative) Urine RBC 10 H (0-5) /hpf Urine WBC 10 H (0-5) /hpf Ur Squamous Epith Cells 7 H (0-4) /hpf Amorphous Sediment Rare H (None) /hpf Urine Bacteria Rare H (None) /hpf Urine Mucus Occasional H (None) /hpf Diabetes panel 05/22/21 Range/Units 19:57 Sodium 135 L (137-145) mmol/L Potassium 4.2 (3.5-5.1) mmol/L Chloride 99 (98-107) mmol/L Carbon Dioxide 27 (22-30) mmol/L BUN 18 H (7-17) mg/dL Creatinine 1.39 H (0.52-1.04) mg/dL Glucose 139 H (74-99) mg/dL Calcium 9.3 (8.4-10.2) mg/dL AST 467 H (14-36) U/L ALT 328 H (4-34) U/L Alkaline Phosphatase 362 H (38-126) U/L Total Protein 6.8 (6.3-8.2) g/dL Albumin 4.2 (3.5-5.0) g/dL Calcium panel 05/22/21 Range/Units 19:57 Calcium 9.3 (8.4-10.2) mg/dL Albumin 4.2 (3.5-5.0) g/dL Pituitary panel 05/22/21 Range/Units 19:57 Sodium 135 L (137-145) mmol/L Potassium 4.2 (3.5-5.1) mmol/L Chloride 99 (98-107) mmol/L Carbon Dioxide 27 (22-30) mmol/L BUN 18 H (7-17) mg/dL Creatinine 1.39 H (0.52-1.04) mg/dL Glucose 139 H (74-99) mg/dL Calcium 9.3 (8.4-10.2) mg/dL Adrenal panel 05/22/21 Range/Units 19:57 Sodium 135 L (137-145) mmol/L Potassium 4.2 (3.5-5.1) mmol/L Chloride 99 (98-107) mmol/L Carbon Dioxide 27 (22-30) mmol/L BUN 18 H (7-17) mg/dL Creatinine 1.39 H (0.52-1.04) mg/dL Glucose 139 H (74-99) mg/dL Calcium 9.3 (8.4-10.2) mg/dL Total Bilirubin 0.8 (0.2-1.3) mg/dL AST 467 H (14-36) U/L ALT 328 H (4-34) U/L Alkaline Phosphatase 362 H (38-126) U/L Total Protein 6.8 (6.3-8.2) g/dL Albumin 4.2 (3.5-5.0) g/dL - Imaging CT scan - abdomen: report reviewed, image reviewed US - kidney/bladder: report reviewed Assessment and Plan (1) Calculus of ureter Current Visit: Yes Status: Acute Code(s): N20.1 - CALCULUS OF URETER S NOMED Code(s): 78153753 (2) Hydronephrosis with renal and ureteral calculous obstruction Current Visit: Yes Status: Acute Code(s): N13.2 - HYDRONEPHROSIS WITH RENAL AND URETERAL CALCULOUS OBSTRUCTION SNOMED Code(s): 011683259 Plan: The patient has persistent right hydronephrosis, consistent with a ureteral calculus which has failed to pass. Her serum creatinine level is elevated, and liver function tests are markedly elevated. Although urinalysis is unremarkable, she has leukopenia which was not present at the time of her prior ER visit. All of this raises concern of sepsis. I had a lengthy discussion with the patient and her family. I have suggested she undergo cystoscopy with right ureteral stent placement to relieve the ureteral obstruction. The rationale for this was discussed with them, and she would then be advised to undergo a secondary procedure 2-3 weeks later for stent removal, ureteroscopy with laser lithotripsy. Potential risks associated with stent placement were reviewed, which include anesthesia, infection, inability to successfully place the stent, and ureteral injury. The possible need for nephrostomy tube placement was discussed. Given that the prior urine culture was negative, and urinalysis today is unremarkable, ureteroscopy will be performed if needed to assist in stent placement. The patient just ate, so I intend to perform the procedure early tomorrow morning. In the meantime, she will continue to receive IV antibiotics and hydration. Time with Patient: Greater than 30
--- NOTE | 2021-05-23 19:48 | XR ---
EXAMINATION TYPE: XR KUB DATE OF EXAM: 05/23/2021 COMPARISON: NONE HISTORY: Abdominal pain TECHNIQUE: 2 views supine FINDINGS: Bowel gas pattern is normal. There is no sign of intestinal obstruction or pneumoperitoneum . Fecal pattern is normal. Lung bases are clear. IMPRESSION: Nonacute abdomen.
[2021-05-23] MEDS: IBUPROFEN 400 MG TAB PO PRN (20:38)
[2021-05-23] MEDS: GABAPENTIN 300 MG CAP PO SCH (20:39)
[2021-05-24] MEDS: SODIUM CHLORIDE 0.9% 1,000 ML IV SCH ×2 (00:56→14:10)
[2021-05-24] MEDS ORDERED: PROPOFOL 10 MG/ML 20 ML VIAL IV ONE (06:10)
[2021-05-24] MEDS ORDERED: ONDANSETRON 4 MG/2 ML VIAL ONE (06:10)
[2021-05-24] MEDS ORDERED: SODIUM CHLORIDE 0.9% 1,000 ML IV ONE (06:10)
[2021-05-24] MEDS ORDERED: fentaNYL (PF) 50 MCG/ML 2 ML AMP ONE (06:10)
[2021-05-24] MEDS ORDERED: LIDOCAINE 1% INJ 10MG/ML (20 ML MDV) ONE (06:10)
[2021-05-24] MEDS ORDERED: MIDAZOLAM 2 MG/2 ML VIAL ONE (06:10)
[2021-05-24] MEDS ORDERED: IOPAMIDOL-370 50ML BTL MISCELLANE ONE ×2 (06:32)
--- NOTE | 2021-05-24 06:57 | P.OP ---
Date of Procedure: 05/24/21 Preoperative Diagnosis: Right ureteral calculus Postoperative Diagnosis: Same Procedure(s) Performed: Cystoscopy, right retrograde pyelogram, right ureteral stent insertion Anesthesia: MAC Surgeon: Curtis Colbert Estimated Blood Loss (ml): 0 IV fluids (ml): 450 Indications for Procedure: The patient is a 60-year-old white female with no prior history of UTIs or urolithiasis. She was evaluated in the emergency room on May 15 for right flank pain. A computed tomography scan showed right hydroureteronephrosis due to a 5.5 mm right proximal ureteral calculus. She was discharged home with prescriptions for tamsulosin, Zofran, and [place]. A urine culture was negative. However, she developed a fever and was treated with Bactrim. She presented back to the emergency room today with generalized weakness and body aches. Ultrasound shows persistent right hydronephrosis, and there are multiple laboratory value abnormalities. She was admitted for further evaluation and treatment. Operative Findings: Right proximal ureteral calculus. Cloudy urine drained from the right renal pelvis upon stent placement. Description of Procedure: The patient was taken to the operating room and placed in the dorsolithotomy position, with legs supported in Barrett stirrups. The external genitalia was prepped and draped sterilely. The 30 lens was used to introduce the 22-Surinamese Stortz cystoscopic sheath through the urethra and into the bladder under direct vision. The bladder was examined in its entirety. Both ureteral orifices were of normal anatomic location and configuration. Clear urine effluxed from the left ureteral orifice. Peristalsis of the right ureteral orifice was seen, though no urine was seen to effluxed from it. No tumors or foreign bodies were seen. Using a 10-Surinamese cone-tipped catheter, a right retrograde pyelogram was performed in the standard fashion. An obstructing calculus was seen within the right proximal ureter. The ureter distal to this appeared normal. An angle-tip 0.035 inch Glidewire was passed through the cystoscope. The right ureteral orifice was cannulated, and the Glidewire was slowly advanced up to the renal pelvis. A 22 cm, 6-Surinamese double-J ureteral stent was placed over the wire. Proper stent positioning was verified fluoroscopically and endoscopically. Cloudy urine drained through the stent following stent placement. With the beak of the cystoscope immediately adjacent to the distal end of the stent, urine was collected and sent for culture and sensitivity. The bladder was emptied and the cystoscope removed. The patient tolerated the procedure well was taken to the recovery room in stable condition.
[2021-05-24] MEDS: PANTOPRAZOLE 40 MG TABLET PO SCH (07:43)
[2021-05-24] MEDS: TAMSULOSIN 0.4 MG CAP.ER.24H PO SCH (07:43)
[2021-05-24] MEDS: DULoxetine HCL 60 MG CAPSULE.DR PO SCH (07:43)
[2021-05-24] MEDS: ONDANSETRON 4 MG/2 ML VIAL IVP PRN ×2 (07:44→18:07)
[2021-05-24] MEDS: LACTATED RINGERS 1,000 ML IV SCH (09:00)
--- NOTE | 2021-05-24 09:04 | FL ---
EXAMINATION TYPE: FL urography retrograde DATE OF EXAM: 05/24/2021 COMPARISON: NONE HISTORY: RIGHT URETERAL STENT TECHNIQUE: Fluoroscopy. FINDINGS: Fluoroscopic guidance was provided during procedure performed. A total of 40 seconds of fl uoroscopic time was utilized during the procedure and 4 spot images was acquired. IMPRESSION: As Above.
[2021-05-24 09:53] LABS: HCT 37.7 % (37.2-46.3); HGB 11.9 g/dL (12.0-15.0); MCH 27.9 pg (27.0-32.0); MCHC 31.6 g/dL (32.0-37.0); MCV 88.5 fL (80.0-97.0); Mean Platelet Volume 10.3 fL (9.5-12.2); Platelet Count 290 X 10*3/uL (140-440); RBC 4.26 X 10*6/uL (4.10-5.20); RDW 13.6 % (11.5-14.5)
[2021-05-24 10:49] LABS: African American GFR (CKD) 71.4 (60.0-200.0); Albumin 3.6 g/dL (3.80-4.90); Albumin/Globulin Ratio 1.71 (1.60-3.17); Anion Gap 4.3 mmol/L (4.00-12.00); Calcium 8.7 mg/dL (8.7-10.3); Carbon Dioxide 25.7 mmol/L (21.6-31.8); Globulin 2.1 g/dL (1.6-3.3); Non-African American GFR(CKD) 61.6 (60.0-200.0); Potassium 4.6 mmol/L (3.5-5.5); Total Bilirubin 0.4 mg/dL (0.3-1.2); Total Protein 5.7 g/dL (6.2-8.2)
--- NOTE | 2021-05-24 11:39 | P.PN ---
Subjective Progress Note Date: 05/24/21 Patient is a pleasant 60-year-old female came in with the complaints of continued fevers. Patient was diagnosed with right-sided kidney stone about 5 mm a few days ago after her which patient was discharged home and patient was having fevers at home because of which are primary care physician believe morris ent has an infected stone because of which patient was given Bactrim in spite of back and the patient continued to have fevers because of which patient came to ER. Patient's urine is not significantly abnormal although there was right- sided hydronephrosis evident on the ultrasound of the abdomen. Patient the urine is mostly consistent with contaminated urine sample but patient is being treated with antibiotics because of which I do not expect abnormal urine analysis anyway. Patient denied any cough. Patient denied any significant dysuria suprapubic pain. There were a few RBC and oblivious in the urine. 05/24/2021 Patient is seen in follow-up status post cystoscopy with right retrograde pyelogram and ureteral stent insertion by Dr. Adhikari. She denies urinary symptoms. She continues empiric antimicrobial therapy with Rocephin, urine cultures are pending at this time. Creatinine has improved to 1.0, sodium level has normalized, transaminases trending down, ALT 232, AST 132. No fevers, hemodynamically stable. REVIEW OF SYSTEMS: CONSTITUTIONAL: No fever, no malaise, no fatigue. CARDIOVASCULAR: No chest pain, orthopnea, PND, no palpitations, no syncope. PULMONARY: No shortness of breath, no cough, no hemoptysis. GASTROINTESTINAL: No diarrhea, no nausea, no vomiting, no abdominal pain. GENITOURINARY: Denies any burning micturition, frequency, or urgency. The rest of the 14-point review of systems is negative. PHYSICAL EXAMINATION: GENERAL: The patient is alert and oriented x3, not in any acute distress. Well developed, well nourished. HEENT: Pupils are round and equally reacting to light. EOMI. No scleral icterus. No conjunctival pallor. Normocephalic, atraumatic. No pharyngeal erythema. No thyromegaly. CARDIOVASCULAR: S1 and S2 present. No murmurs, rubs, or gallops. PULMONARY: Chest is clear to auscultation, no wheezing or crackles. ABDOMEN: Soft, nontender, nondistended, normoactive bowel sounds. No palpable organomegaly. MUSCULOSKELETAL: No joint swelling or deformity. EXTREMITIES: No cyanosis, clubbing, or pedal edema. NEUROLOGICAL: Gross neurological examination did not reveal any focal deficits. SKIN: No rashes. Assessment and plan - Acute UTI with Possible right-sided pyelonephritis : Secondary to infected stone. Status post cystoscopy continues empiric antimicrobial therapy with Ro cephin, urine cultures are pending, awaiting final ID and sensitivity. -Acute kidney injury: Improved possibly secondary to Bactrim use. Creatinine has improved, she is maintained on IV hydration normal saline at 75. -Right-sided hydronephrosis: Status post right ureteral stent placement by urology -Hyperlipidemia -Mild hyponatremia secondary to Bactrim: Sodium level has normalized -Elevated liver enzymes as per the patient is a chronic, is under the liver did not show any significant abnormality. And this can be related to Bactrim as well with repeat the compressive metabolic profile tomorrow again make sure liver enzymes are not going up patient had hepatitis panel as an outpatient whic h was not abnormal as per the patient . LFTs are trending down. -tachycardia secondary to fever which is resolved now DVT prophylaxis: Early ambulation Objective - Vital Signs Vital signs: Vital Signs Temp 98.3 F 05/24/21 07:00 Pulse 92 05/24/21 07:00 Resp 16 05/24/21 07:00 BP 113/75 05/24/21 07:00 Pulse Ox 96 05/24/21 07:00 Intake & Output 05/23/21 05/24/21 05/24/21 18:59 06:59 18:59 Intake Total 180 1700 Output Total 350 Balance 180 1350 Intake: IV 500 Intake, IV Titration 1200 Amount Sodium Chloride 0.9% 1, 1200 000 ml @ 75 mls/hr IV . [id number] [facility] Rx#:[id number] Oral 180 Output: Urine 350 Estimated Blood Loss 0 Other: Voiding Method Toilet Toilet # Voids 5 6 # Bowel Movements 1 1 - Labs CBC & Chem 7: 05/24/21 05:26 05/24/21 05:26 Labs: Abnormal Lab Results - Last 24 Hours (Table) 05/24/21 05/24/21 Range/Units 05:26 05:26 WBC 2.90 L (4.50-10.00) X 10*3/uL Hgb 11.9 L (12.0-15.0) g/dL MCHC 31.6 L (32.0-37.0) g/dL Chloride 111 H (96-109) mmol/L BUN/Creatinine Ratio 11.00 L (12.00-20.00) Ratio AST 132 H (13-35) U/L ALT 232 H (8-44) U/L Alkaline Phosphatase 317 H (41-126) U/L Total Protein 5.7 L (6.2-8.2) g/dL Albumin 3.60 L (3.80-4.90) g/dL Microbiology - Last 24 Hours (Table) 05/23/21 22:00 Urine Culture - Preliminary Urine,Voided 05/22/21 19:57 Blood Culture - Preliminary Blood No Growth after 24 hours 05/22/21 19:57 Blood Culture - Preliminary Blood No Growth after 24 hours
[2021-05-24] MEDS: IBUPROFEN 400 MG TAB PO PRN (18:07)
[2021-05-24] MEDS: GABAPENTIN 300 MG CAP PO SCH (20:16)
[2021-05-24] MEDS: HYDROmorphone 0.5 MG/0.5 ML SYRINGE IVP PRN (20:16)
[2021-05-24 22:53] VITALS: RESP 16
--- NOTE | 2021-05-24 23:26 | P.CONS ---
History of Present Illness - Reason for Consult Consult date: 05/24/21 Urinary tract infection Requesting physician: Salbador Isbell - Chief Complaint right sided abd pain x 1 week - History of Present Illness Patient is a 60 female presenting to the ER day before yesterday for evaluation of abdominal pain the patient pain has been mostly on the right side most to the right flank area insulin-requiring and has been going on for about a week patient was recent diagnosed with a kidney stone and the patient will discharge with Zofran meclizine Flomax however the patient significantly got worse patient subsequently was evaluated by her primary care physician has been diagnosed with UTI and was started on Bactrim however the patient having increasing pain to the right flank area as well having a fever of 100 2490. No nausea and several episodes of vomiting with recently the patient presented to the hospital on arrival to the ER patient did have low-grade fever of 99.7 subsequent spike a fever of 101.5 F patient did have leukopenia kidney function slightly elevated urine was positive the results are elevated patient did have a gallbladder ultrasound no gallstones or dilated ducts there was right-sided hydronephrosis patient subsequent has been evaluated by urology status post cystoscopy with right ureteral stent placement urine culture is currently pending patient is currently being treated with Rocephin infectious disease was consulted for further management of antibiotic therapy Review of Systems Positive point has been mentioned in the HPI rest of the systems are negative Past Medical History Past Medical History: Hyperlipidemia History of Any Multi-Drug Resistant Organisms: None Reported Past Surgical History: No Surgical Hx Reported Past Anesthesia/Blood Transfusion Reactions: No Reported Reaction Past Psychological History: No Psychological Hx Reported Smoking Status: Never smoker Past Alcohol Use History: None Reported Past Drug Use History: None Reported Medications and Allergies Home Medications Medication Instructions Recorded Confirmed Type DULoxetine HCL [Cymbalta] 60 mg PO DAILY 05/25/19 05/22/21 History Gabapentin [Neurontin] 600 mg PO HS 05/25/19 05/22/21 History Multivitamins, Thera [Multivitamin 1 tab PO DAILY 05/25/19 05/22/21 History (formulary)] Tamsulosin [Flomax] 0.4 mg PO DAILY #14 cap 05/15/21 05/22/21 Rx Cyclobenzaprine [Flexeril] 5 mg PO TID PRN 05/22/21 05/22/21 History Ergocalciferol (Vitamin D2) 1,250 mcg PO WEEKLY 05/22/21 05/22/21 History [Drisdol (50,000 Iu)] Levocetirizine Dihydrochloride 5 mg PO DAILY PRN 05/22/21 05/22/21 History [Xyzal] Omeprazole 20 mg PO DAILY 05/22/21 05/22/21 History Sulfamethox-Tmp 800-160Mg [Bactrim 1 tab PO Q12HR 05/22/21 05/22/21 History DS 800-160 mg] Allergies Allergy/AdvReac Type Severity Reaction Status Date / Time No Known Allergies Allergy Verified 05/22/21 22:27 Physical Exam Vitals: Vital Signs Temp Pulse Pulse Resp BP Pulse Ox 05/24/21 14:38 99.4 F 103 H 17 120/75 96 05/24/21 07:00 98.3 F 92 16 113/75 96 05/24/21 06:55 84 16 113/61 96 05/24/21 06:40 97.6 F 92 10 L 108/61 96 05/24/21 01:22 98.5 F 97 18 109/73 96 05/23/21 20:00 107 H 18 05/23/21 19:42 101.5 F H 107 H 18 123/73 94 L 05/23/21 18:25 98.4 F 92 18 104/54 95 Intake and Output 05/24/21 05/24/21 05/24/21 06:59 14:59 22:59 Intake Total 1400 420 Output Total 0 Balance 1400 420 Intake: IV 500 Intake, IV Titration 900 Amount Sodium Chloride 0.9% 1, 900 000 ml @ 75 mls/hr IV . [id number] [facility] Rx#:[id number] Oral 420 Output: Estimated Blood Loss 0 Other: Voiding Method Toilet # Voids 6 GENERAL DESCRIPTION: Middle-aged female lying in bed, no distress. No tachypnea or accessory muscle of respiration use. HEENT: Shows Pallor , no scleral icterus. Oral mucous membrane is dry. No pharyngeal erythema or thrush NECK: Trachea central, no thyromegaly. LUNGS: Unlabored breathing. Clear to auscultation anteriorly. No wheeze or crackle. HEART: S1, S2, regular rate and rhythm. No loud murmur ABDOMEN: Soft, no tenderness , guarding or rigidity, no organomegaly EXTREMITIES: No edema of feet. SKIN: No rash, no masses palpable. NEUROLOGICAL: The patient is awake, alert, oriented x3, mood and affect normal. Results CBC & Chem 7: 05/24/21 05:26 05/24/21 05:26 Labs: Abnormal Lab Results - Last 24 Hours (Table) 05/24/21 05/24/21 Range/Units 05:26 05:26 WBC 2.90 L (4.50-10.00) X 10*3/uL Hgb 11.9 L (12.0-15.0) g/dL MCHC 31.6 L (32.0-37.0) g/dL Chloride 111 H (96-109) mmol/L BUN/Creatinine Ratio 11.00 L (12.00-20.00) Ratio AST 132 H (13-35) U/L ALT 232 H (8-44) U/L Alkaline Phosphatase 317 H (41-126) U/L Total Protein 5.7 L (6.2-8.2) g/dL Albumin 3.60 L (3.80-4.90) g/dL Microbiology - Last 24 Hours (Table) 05/23/21 22:00 Urine Culture - Preliminary Urine,Voided 05/22/21 19:57 Blood Culture - Preliminary Blood No Growth after 24 hours 05/22/21 19:57 Blood Culture - Preliminary Blood No Growth after 24 hours Assessment and Plan Assessment: patient presented to hospital with sepsis in this patient who did have a fever tachycardia and leukopenia source likely complicated urinary infection in this patient who did have right-sided hydronephrosis from the ureteral stone status post cystoscopy with ureteral stent placement (1) Sepsis Current Visit: Yes Status: Acute Code(s): A41.9 - SEPSIS, UNSPECIFIED O RGANISM SNOMED Code(s): 36568996 (2) Urinary tract infection Current Visit: Yes Status: Acute Code(s): N39.0 - URINARY TRACT INFECTION, SITE NOT SPECIFIED SNOMED Code(s): 33153376 Plan: 1-Rocephin 1 g IV daily to continue 2-gentle IV fluid We will follow on clinical condition and cultures to further adjust medication if needed Thank you for this consultation we will follow the patient along with you Time with Patient: Greater than 30
[2021-05-25] MEDS: ONDANSETRON 4 MG/2 ML VIAL IVP PRN (03:44)
[2021-05-25] MEDS: SODIUM CHLORIDE 0.9% 1,000 ML IV SCH (03:44)
[2021-05-25] MEDS: LACTATED RINGERS 1,000 ML IV SCH (03:45)
[2021-05-25] MEDS ORDERED: ONDANSETRON 4 MG/2 ML VIAL IVP PRN (07:00)
[2021-05-25] MEDS ORDERED: HYDROmorphone 0.5 MG/0.5 ML SYRINGE IVP PRN (07:00)
[2021-05-25] MEDS: PANTOPRAZOLE 40 MG TABLET PO SCH (08:01)
[2021-05-25] MEDS: TAMSULOSIN 0.4 MG CAP.ER.24H PO SCH (08:01)
[2021-05-25] MEDS: DULoxetine HCL 60 MG CAPSULE.DR PO SCH (08:01)
[2021-05-25] MEDS: IBUPROFEN 400 MG TAB PO PRN (10:45)
--- NOTE | 2021-05-25 13:10 | P.PN ---
Subjective S/P right ureteral stent placement yesterday, denies any fever. Having bladder spasms post stent placement. Objective - Vital Signs Vital signs: Vital Signs Temp 98.3 F 05/25/21 06:55 Pulse 81 05/25/21 06:55 Resp 16 05/25/21 07:52 BP 115/73 05/25/21 06:55 Pulse Ox 94 L 05/25/21 06:55 Intake & Output 05/24/21 05/25/21 05/25/21 18:59 06:59 18:59 Intake Total 840 900 Output Total 800 Balance 840 100 Intake: Intake, IV Titration 900 Amount Sodium Chloride 0.9% 1, 900 000 ml @ 75 mls/hr IV . [id number] [facility] Rx#:[id number] Oral 840 Output: Urine 800 Other: Voiding Method Toilet Toilet Toilet # Voids 1 5 - Labs CBC & Chem 7: 05/24/21 05:26 05/24/21 05:26 Labs: Abnormal Lab Results - Last 24 Hours (Table) 05/24/21 05/24/21 Range/Units 05:26 05:26 WBC 2.90 L (4.50-10.00) X 10*3/uL Hgb 11.9 L (12.0-15.0) g/dL MCHC 31.6 L (32.0-37.0) g/dL Chloride 111 H (96-109) mmol/L BUN/Creatinine Ratio 11.00 L (12.00-20.00) Ratio AST 132 H (13-35) U/L ALT 232 H (8-44) U/L Alkaline Phosphatase 317 H (41-126) U/L Total Protein 5.7 L (6.2-8.2) g/dL Albumin 3.60 L (3.80-4.90) g/dL Microbiology - Last 24 Hours (Table) 05/22/21 19:57 Blood Culture - Preliminary Blood No Growth after 48 hours 05/22/21 19:57 Blood Culture - Preliminary Blood No Growth after 48 hours 05/23/21 22:00 Urine Culture - Preliminary Urine,Voided Assessment and Plan Assessment: 60 yo female S/P right sided stent placement, having bladder spasms post stent, Ucx is still pending, -F/U on urine culture, ID is onboard, will need minimum of 7 days of abx -Ditropan 5 mg XL for bladder spasms -Will arrange outpatient ureteroscopy with Dr Colbert to address her stone
[2021-05-25 14:08] VITALS: BP 112/72; PULSE 78; TEMP 98.1
--- NOTE | 2021-05-25 17:43 | PN ---
PROGRESS NOTE DATE OF SERVICE: 05/25/2021 REASON FOR FOLLOWUP: Right-sided complicated urinary tract infection and pyelonephritis. INTERVAL HISTORY: The patient is afebrile. The patient is breathing comfortably. The patient denies having any chest pain, shortness of breath or cough. Right flank pain has improved. No vomiting or diarrhea. PHYSICAL EXAMINATION: Blood pressure 112/72 with a pulse of 73, temperature 98.1. She is 96% on room air. GENERAL DESCRIPTION: Is a middle-aged female lying in bed in no distress. RESPIRATORY SYSTEM: Unlabored breathing, clear to auscultation anteriorly. HEART: S1, S2. Regular rate and rhythm. ABDOMEN: Soft, no tenderness. LABS: No new labs been obtained today. Culture has been negative so far. DIAGNOSTIC IMPRESSION AND PLAN: Patient with right-sided complicated urinary tract infection in this patient status post cystoscopy and ureteral stent placement. Cultures have been negative so far. Overall improvement on Rocephin. Finish therapy with oral Ceftin and close outpatient followup. MMODL / IJN: [id number] /
[2021-05-26] MEDS ORDERED: OXYBUTYNIN XL 5 MG TAB.ER.24 PO SCH (09:00)
[2021-05-30] MEDS ORDERED: ERGOCALCIFEROL 1,250 MCG (50,000 IU) CAPSULE PO SCH (09:00)
== END 2021-05-25 17:30 | disposition home or self-care (01) | DRG 854 ==
LOC: EC 18:05 → 6NMEDSUR 22:20 → OBSVTOIN 05-25 08:57
PROVIDERS: ADMIT Internal Medicine; ATTEND Internal Medicine
PROC: 0T768DZ Dilation of Right Ureter with Intraluminal Device, Via Natural or Artificial Opening Endoscopic (ICD-10-PCS; principal; 2021-05-24 06:00)
PROC: BT1D1ZZ Fluoroscopy of Right Kidney, Ureter and Bladder using Low Osmolar Contrast (ICD-10-PCS; principal; 2021-05-24 06:00)
DX: A41.9 Sepsis, unspecified organism (principal); N13.6 Pyonephrosis; N17.9 Acute kidney failure, unspecified; E87.1 Hypo-osmolality and hyponatremia; N32.89 Other specified disorders of bladder; E78.5 Hyperlipidemia, unspecified; T36.8X5A Adverse effect of other systemic antibiotics, initial encounter; Z79.899 Other long term (current) drug therapy
CPT/HCPCS: 36415; 74018; 74420; 76705; 76770; 80053; 81001; 83605; 85025; 85027; 87040; 87086; 96374; 96375; 99285

== ENCOUNTER 2021-05-28 07:08 | Day surgery (SDC) | payer OTHER ==
[2021-05-26 10:38] VITALS: BMI 29.2
--- NOTE | 2021-05-26 17:41 | P.GSHP ---
History of Present Illness H&P Date: 05/26/21 Chief Complaint: Right renal colic The patient is a 60-year-old white female with no prior history of UTIs or urolithiasis. She was evaluated in the emergency room on May 15 for right flank pain. A CT scan showed right hydroureteronephrosis due to a 5.5 mm right proximal ureteral calculus. She was discharged home with prescriptions for tamsulosin, Zofran, and [place]. A urine culture was negative. However, she developed a fever and was treated with Bactrim. She presented back to the emergency room on May 23 with generalized weakness and body aches. Ultrasound showed persistent right hydronephrosis, and there were multiple laboratory value abnormalities. She was admitted and underwent right ureteral stent insertion the following day. She now comes for stent removal, right ureteroscopy with laser lithotripsy. - Constitutional Constitutional: Reports chills, Reports malaise - Gastrointestinal Gastrointestinal: Reports loss of appetite - Genitourinary (Female) Genitourinary: Reports flank pain, Reports kidney stones, Denies dysuria, Denies hematuria Past Medical History Past Medical History: Hyperlipidemia Additional Past Medical History / Comment(s): kidney stones History of Any Multi-Drug Resistant Organisms: None Reported Past Surgical History: No Surgical Hx Reported Additional Past Surgical History / Comment(s): cystoscopy with rt stent 05/24/21 Past Anesthesia/Blood Transfusion Reactions: No Reported Reaction Past Psychological History: Anxiety Smoking Status: Never smoker Past Alcohol Use History: None Reported Past Drug Use History: None Reported Medications and Allergies Home Medications Medication Instructions Recorded Confirmed Type DULoxetine HCL [Cymbalta] 60 mg PO QAM 05/25/19 05/26/21 History Gabapentin [Neurontin] 600 mg PO HS 05/25/19 05/26/21 History Multivitamins, Thera [Multivitamin 1 tab PO DAILY 05/25/19 05/26/21 History (formulary)] Tamsulosin [Flomax] 0.4 mg PO DAILY #14 cap 05/15/21 05/26/21 Rx Cyclobenzaprine [Flexeril] 5 mg PO TID PRN 05/22/21 05/26/21 History Ergocalciferol (Vitamin D2) 1,250 mcg PO WEEKLY 05/22/21 05/26/21 History [Drisdol (50,000 Iu)] Levocetirizine Dihydrochloride 5 mg PO DAILY PRN 05/22/21 05/26/21 History [Xyzal] Omeprazole 20 mg PO DAILY 05/22/21 05/26/21 History Cefuroxime Axetil [Ceftin] 500 mg PO BID 10 Days #20 tab 05/25/21 05/26/21 Rx Oxybutynin Xl [Ditropan XL] 5 mg PO DAILY #30 tab.er.24 05/25/21 05/26/21 Rx Allergies Allergy/AdvReac Type Severity Reaction Status Date / Time No Known Allergies Allergy Verified 05/26/21 10:35 Surgical - Exam - General well developed, well nourished, moderate distress - Respiratory normal respiratory effort - Abdomen Soft, non-distended, no mass. Diffuse tenderness, primarily right-sided, with no guarding or rebound. - Genitourinary normal external genitalia, normal perineum - Psychiatric oriented to time, oriented to person, oriented to place, speech is normal, memory intact Results - Imaging CT scan - abdomen: report reviewed, image reviewed Assessment and Plan (1) Calculus of ureter Status: Acute Code(s): N20.1 - CALCULUS OF URETER SNOMED Code(s): 96675653 Plan: Cystoscopy, right ureteral stent removal, right ureteroscopy with Holmium laser lithotripsy and possible stone basketing. The procedure has been reviewed in detail with the patient and her spouse. They're aware of potential risks, which include anesthesia, infection, ureteral injury, and inability to successfully remove the calculus.
--- NOTE | 2021-05-28 07:54 | XR ---
EXAMINATION TYPE: XR KUB DATE OF EXAM: 05/28/2021 Comparison: 05/23/2021 Clinical History: 60-year-old female right KIDNEY STONE Findings: Lung bases are clear. Moderate to large stool burden. Right ureteral stent in place. Osteitis pubis. Phleboliths in the lower left pelvis. Punctate nonobst ructive right renal calculus measuring 2 mm. Impression: Suspect a punctate 2 mm nonobstructive right renal calculus. Right ureteral stent is in place.
[2021-05-28] MEDS ORDERED: LIDOCAINE 1% (10MG/ML) FOR IV START INTRADERMA ONE (08:10)
[2021-05-28] MEDS ORDERED: LACTATED RINGERS 1,000 ML IV ONE (08:12)
[2021-05-28] MEDS ORDERED: ONDANSETRON 4 MG/2 ML VIAL ONE (08:17)
[2021-05-28] MEDS ORDERED: ONDANSETRON 4 MG/2 ML VIAL IVP ONE (08:18)
[2021-05-28] MEDS ORDERED: DEXAMETHASONE SOD PHOSPHATE 4 MG/ML 1 ML VIAL IVP ONE (08:19)
[2021-05-28] MEDS ORDERED: MIDAZOLAM 2 MG/2 ML VIAL IVP ONE (08:30)
[2021-05-28 08:37] LABS: ALT 358 U/L (4-34); AST 273 U/L (14-36); African American GFR (CKD) >90 (>60 ml/min/1.73 sqM); Albumin 4.2 g/dL (3.5-5.0); Alkaline Phosphatase 310 U/L (38-126); Anion Gap 10 mmol/L; Blood Urea Nitrogen 17 mg/dL (7-17); Calcium 9.6 mg/dL (8.4-10.2); Carbon Dioxide 29 mmol/L (22-30); Chloride 103 mmol/L (98-107); Glucose 102 mg/dL (74-99); Non-African American GFR(CKD) >90 (>60 ml/min/1.73 sqM); Potassium 4.2 mmol/L (3.5-5.1); Sodium 142 mmol/L (137-145); Total Bilirubin 0.5 mg/dL (0.2-1.3)
[2021-05-28] MEDS ORDERED: GLYCOPYRROLATE 0.2 MG/ML 2 ML VIAL ONE (09:06)
[2021-05-28] MEDS ORDERED: PHENYLEPHRINE-0.9% NACL SYG 1,000 MCG/10 ML SYRINGE ONE (09:06)
[2021-05-28] MEDS ORDERED: fentaNYL (PF) 50 MCG/ML 2 ML AMP ONE (09:06)
[2021-05-28] MEDS ORDERED: NEOSTIGMINE 1 MG/ML 10 ML VIAL ONE (09:06)
[2021-05-28] MEDS ORDERED: ROCURONIUM 10 MG/ML (5 ML VIAL) IV ONE (09:06)
[2021-05-28] MEDS ORDERED: SUCCINYLCHOLINE CHLORIDE 100 MG/5 ML SYR IV ONE (09:06)
[2021-05-28] MEDS ORDERED: PROPOFOL 10 MG/ML 20 ML VIAL IV ONE (09:06)
[2021-05-28] MEDS ORDERED: MIDAZOLAM 2 MG/2 ML VIAL ONE (09:06)
[2021-05-28] MEDS ORDERED: LIDOCAINE 1% INJ 10MG/ML (20 ML MDV) ONE (09:06)
[2021-05-28 10:21] VITALS: TEMP 97.3
--- NOTE | 2021-05-28 10:26 | P.OP ---
Date of Procedure: 05/28/21 Preoperative Diagnosis: Right ureteral calculus, right renal calculi Postoperative Diagnosis: Right ureteral calculi, right renal calculi Procedure(s) Performed: Cystoscopy, right ureteral stent removal, right ureteroscopy with Holmium laser lithotripsy and stone basketing Anesthesia: GETA Estimated Blood Loss (ml): 0 IV fluids (ml): 400 Pathology: other (Stone fragments, sent for chemical analysis) Condition: stable Disposition: PACU Indications for Procedure: The patient is a 60-year-old white female with no prior history of UTIs or urolithiasis. She was evaluated in the emergency room on May 15 for right flank pain. A CT scan showed right hydroureteronephrosis due to a 5.5 mm right proximal ureteral calculus. She was discharged home with prescriptions for tamsulosin, Zofran, and [place]. A urine culture was negative. However, she developed a fever and was treated with Bactrim. She presented back to the emergency room on May 23 with generalized weakness and body aches. Ultrasound showed persistent right hydronephrosis, and there were multiple laboratory value abnormalities. She was admitted and underwent right ureteral stent insertion the following day. She now comes for stent removal, right ureteroscopy with laser lithotripsy. Operative Findings: Several right proximal ureteral calculi measuring up to 5 mm in size. Small right lower pole renal calculi Description of Procedure: The patient was taken to the operating room and placed in the dorsolithotomy position, with legs supported in Barrett stirrups. The external genitalia was prepped and draped sterilely. The 30 lens was used to introduce the 21-Mosotho Fletcher cystoscopic sheath through the urethra and into the bladder under direct vision. The bladder was examined in its entirety. No abnormalities were seen. Grasping forceps were used to grasp the distal end of the right ureteral stent, which was removed along with the cystoscope. The Flethcer semirigid ureteroscope was advanced into the bladder, and the right ureteral orifice was cannulated. The ureteroscope was slowly advanced under direct vision, up to the right proximal ureter. 3 calculi were seen, the largest measuring 5 mm. The 200 micron Holmium laser probe was passed through the ureteroscope, and lithotripsy was performed utilizing a dusting mode. The largest fragment measured 1-2 mm in size and was removed using a 1.9-Mosotho nitinol basket. The ByteActive flexible ureteroscope was advanced into the bladder, and the right ureteral orifice was cannulated. The ureteroscope was slowly advanced under direct vision, up to the right renal pelvis. Each calyx was examined. Several tiny calculi were seen. A right lower pole calculus was identified measuring approximately 3 mm in size. The calculus was fragmented, and the largest fragment was removed using the 1.9-Mosotho nitinol basket. The ureteroscope was again passed up into the right renal pelvis, but no calculi were identified warranting treatment other than a small amount of debris within the right renal pelvis. This was grasped with the 1.9-Mosotho nitinol basket and removed along with the ureteroscope. The ureter was examined as the ureteroscope was withdrawn, there was no evidence of ureteral trauma. The patient tolerated the procedure well and was taken to the recovery room in stable condition. [facility] [place] [facility] Report: Procedure Acuity: Elective Stone Size and Location: Right proximal ureteral calculi, largest 5 mm. Small right renal calculi. Ureteral Dilation: No Ureteral Access Sheath Used: No Stone Sent for Analysis: Yes All Stones/Fragments Were Removed with a Basket: Yes Complications: No Preoperative Antibiotics Given: Yes Stent Placed: No Discharge Medications: None
[2021-05-28] MEDS ORDERED: SODIUM CHLORIDE 0.9% 1,000 ML IV ONE (10:46)
[2021-05-28 11:11] VITALS: BP 118/70; PULSE 87; RESP 16
== END 2021-05-28 11:30 | disposition home or self-care (01) ==
LOC: OR 07:08
PROVIDERS: ATTEND Urology
DX: N13.2 Hydronephrosis with renal and ureteral calculous obstruction (principal); E78.5 Hyperlipidemia, unspecified; F41.9 Anxiety disorder, unspecified
CPT/HCPCS: 52356; 52320; 80053; 82365; 74018; J2250; J1100; J2710; J0690; J2405; J2001; J3010; J2370; J0330; J2704

== ENCOUNTER → 2021-08-21 | Outpatient (CLI) | payer OTHER ==
--- NOTE | 2021-08-21 17:09 | US ---
EXAMINATION TYPE: US kidneys/renal and bladder DATE OF EXAM: 08/21/2021 COMPARISON: US, CT CLINICAL HISTORY: N13.2 Hydronephrosis with renal and ureteral. Followup hydronephrosis and post righ t renal; stone retrieval EXAM MEASUREMENTS: Right Kidney: 9.1 x 5.9 x 4.0 cm Left Kidney: 9.7 x 5.3 x 5.5 cm Post Void Residual Volume: 24.8 mL Right Kidney: No hydronephrosis or masses seen Left Kidney: inferomedial cortical cysts is seen = 0.7 x 0.6 x 0.5cm. Bladder: wnl Bilateral Jets seen: yes Normal Post Void Residual: yes There is no evidence for hydronephrosis at this point in time. No nephrolithiasis is seen. The urin maye bladder is anechoic. Bilateral ureteral jets are seen. IMPRESSION: Left renal cortical cyst.
== END | disposition home or self-care (01) ==
LOC: RADUSWWP 15:20
PROVIDERS: ATTEND Urology
DX: N28.1 Cyst of kidney, acquired (principal)
CPT/HCPCS: 76770

== ENCOUNTER → 2021-09-09 | Outpatient (CLI) | payer OTHER ==
--- NOTE | 2021-09-09 10:15 | XR ---
EXAMINATION TYPE: XR shoulder complete RT DATE OF EXAM: 09/09/2021 COMPARISON: NONE HISTORY: Pain TECHNIQUE: Three views are submitted. FINDINGS: The osseous structures are intact. There is no acute fracture or dislocation. AC joint arthropathy. IMPRESSION: 1. No acute process.
== END | disposition home or self-care (01) ==
LOC: RADXRYALE 09:56
PROVIDERS: ATTEND Physician Assistant
DX: M19.011 Primary osteoarthritis, right shoulder (principal)

== ENCOUNTER → 2021-11-09 | Outpatient (CLI) | payer OTHER ==
--- NOTE | 2021-11-10 03:37 | MR ---
EXAMINATION TYPE: MR shoulder RT wo con DATE OF EXAM: 11/09/2021 COMPARISON: None HISTORY: Right shoulder pain for 2 years Multiplanar multiecho imaging of the right shoulder without contrast. There is moderate spurring at the AC joint. There is large vertical defect through the supraspinatus tendon near the attachment on the greater tuberosity. There is mild subdeltoid effusion. There are sm all shoulder joint effusion. The subscapularis tendon is intact. Biceps tendon is intact. Glenoid shaun appear intact. There is no evidence of a fracture. IMPRESSION: Large full-thickness tear of the supraspinatus tendon at the greater tuberosity. Shoulder joint effusion and subdeltoid effusion. Hypertrophic spurring at the AC joint with only mini mal subacromial impingement.
== END | disposition home or self-care (01) ==
LOC: RADMRIMAIN 16:23
PROVIDERS: ATTEND Family Medicine
DX: M75.111 Incomplete rotator cuff tear or rupture of right shoulder, not specified as traumatic (principal)

== ENCOUNTER → 2023-02-07 | Outpatient (CLI) | payer OTHER ==
--- NOTE | 2023-02-07 21:15 | MR ---
EXAMINATION TYPE: MR lumbar spine wo con DATE OF EXAM: 02/07/2023 9:08 PM COMPARISON: 04/11/2021 HISTORY: Low back pain Multiplanar, MultiSpin echo imaging of the lumbar spine was performed. L1-L2: Normal disc appearance without desiccation. No herniation, protrusion or disc bulging. No ca nal stenosis is present. Foramina are patent bilaterally. L2-L3: Normal disc appearance without desiccation. No herniation, protrusion or disc bulging. No ca nal stenosis is present. Foramina are patent bilaterally. L3-L4: Normal disc appearance without desiccation. No herniation, protrusion or disc bulging. No ca nal stenosis is present. Foramina are patent bilaterally. L4-L5: Mild decreased signal ossified compatible degenerative disc disease. Mild posterior disc bulge with minimal effacement ventral thecal sac. No evidence for herniation or central stenosis. L5-S1: Moderate disc desiccation. Minimal posterior disc bulge. No herniation protrusion or central s tenosis. Foramina are patent. Lumbar segments are intact. No paraspinal masses are identified. Conus medullaris has a normal appe arance. IMPRESSION: 1. Stable degenerative disc disease and mild disc bulge at L4-5 and L5-S1.
== END | disposition home or self-care (01) ==
LOC: RADMRIMAIN 20:45
PROVIDERS: ATTEND Family Medicine
DX: M51.36 Other intervertebral disc degeneration, lumbar region (principal); M51.37 Other intervertebral disc degeneration, lumbosacral region; M50.30 Other cervical disc degeneration, unspecified cervical region
CPT/HCPCS: 72148

== ENCOUNTER → 2023-02-15 | Outpatient (CLI) | payer OTHER ==
--- NOTE | 2023-02-15 13:04 | MR ---
MRI CERVICAL SPINE: CLINICAL HISTORY: Neck pain into rt arm and fingers for 10 years. Cervicalgia. TECHNIQUE: Multiplanar , multisequence imaging of the cervical spine is performed without IV contrast. COMPARISON: None. FINDINGS: Sagittal images of the cervical spine show the craniocervical junction to appear within nor mal limits. The cervical and upper thoracic spinal cord is normal in course, caliber, and signal. Sl ight grade 1 retrolisthesis C3 on C4 and grade 1 anterolisthesis C5 on C6. The vertebral body and in travertebral disk heights are normal. The bone marrow signal intensity is within normal limits. Axial images show C2-C3 level to appear within normal limits. Axial images at C3-C4 levels uncovertebral facet degenerative changes causing mild to moderate right- sided neural foraminal narrowing. Axial images at C4-C5 level show spondylolisthesis with broad-based right paracentral disc protrusion mildly facing anterior thecal sac, there is mild/moderate right-sided neural foraminal narrowing. Axial images at C5-C6 levels with broad-based posterior disc protrusion with uncovertebral facet dege nerative changes. There is some effacement of the anterior thecal sac and mild bilateral neural kuldeep inal narrowing. Axial images at C6-C7 and C7-T1 levels appear within normal limits. IMPRESSION: Multilevel spondylolisthesis and degenerative change in the cervical spine as detailed ab ove.
== END | disposition home or self-care (01) ==
LOC: RADMRIMAIN 10:21
PROVIDERS: ATTEND Family Medicine
DX: M43.12 Spondylolisthesis, cervical region (principal); M47.812 Spondylosis without myelopathy or radiculopathy, cervical region; M50.222 Other cervical disc displacement at C5-C6 level; M99.71 Connective tissue and disc stenosis of intervertebral foramina of cervical region; M50.30 Other cervical disc degeneration, unspecified cervical region; M54.51 Vertebrogenic low back pain
CPT/HCPCS: 72141

== ENCOUNTER → 2023-03-14 | Outpatient (CLI) | payer OTHER ==
[2023-03-14 11:46] VITALS: BP 124/78; PULSE 89; RESP 18; TEMP 98.1
--- NOTE | 2023-03-24 15:08 | P.PAINPG ---
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 Pt states pain level is provoked at 6/10 in intensity, constant, localized in the lower lumbar spine, dull, achy in character w shooting pain towards the L & R of midline. Pain is provoked by standing/ walking for periods of 15 min or more. Pain is alleviated by medications (Neurontin, Flexeril, Aleve), ice, heat, PT 6 weeks in Dec 2022, repositioning and rest. Pt admitted to [facility] x 2 in 2019 which provided no relief. PMH: Nephrolithiasis, Hyperlipidemia, GERD, Anxiety PSH: Cystoscopy/ R Uteroscopy (2020), SH: Negative x3. 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 FH: Non contributory All: NKDA Meds: See list REVIEW OF ORGAN SYSTEMS: CONSTITUTIONAL: No fevers or chills. No recent weight loss. NEUROLOGICAL: + numbness and tingling along the distal extremities. No seizure disorders or headaches. MUSCULOSKELETAL: + pain PSYCHIATRIC: Denies current depression or suicidal thoughts. Physical Examinations : Constitutional : Cooperative , not in acute distress . Neurologic : Cranial nerve II to XII intact. No focal neurological deficits. Psychiatric : alert & oriented x 3. Matching mood & appropriate affect. Judgment & insight intact. Musculoskeletal : Cervical Spine Motor strength in the deltoid and biceps: Normal right side. Normal Left side Motor strength biceps and the wrist extensors: Normal right side . Normal left side Motor strength in the triceps muscle: Normal right side. Normal left side Deep tendon reflexes: Normal at the biceps. Normal at Brachioradialis. Normal at triceps Vertebral body tenderness to deep palpation over Cervical facet loading test: positive bilaterally Spurling test: positive bilaterally Neck distraction test: positive bilaterally Luke sign: positive bilaterally Lumbar spine Motor strength lower extremities ,thigh and legs 5/5 Right side , 5/5 Left side Deep tendon reflexes : Normal Knee Jerk. Normal Ankle Jerk Vertebral body tenderness over Lumbar facet Loading Test: positive Right / positive Left BL L4-L5, L5-S1 Range of motion of the lumbar spine Flexion 30 degrees, extension 10 degrees Straight Leg Raise test: Left/ Right positive at degree Halie test: positive right / positive left. Severe tenderness over the Sacroiliac joint on the Right / Left sides Gaenslen test: positive bilaterally Seated flexion test: positive bilaterally. Sacral spine : Severe tenderness over the Sacroiliac joint: right side / left side Range of motion: Flexion of the lumbar spine <60 degrees Range of motion: Extension of the lumbar spine <20 degrees Gaenslen's Test positive Henry's Test positive Halie test: positive right side / left side Thigh Thrust Test Sacral Thrust Test Imaging: MRI non contrast of the cervical spine from 02/15/23 reviewed Assessment/ Plan : Lumbar spondylosis Recommendation of BL MBB L4-L5, L5-S1 #1. May need a series of injections for optimal pain relief. Risks, benefits of procedure discussed and patient verbali zed understanding. Admits to aspirin or anti- coagulant use or medical history of diabetes. Protocol for discontinuation/ continuation of medications silvio procedure discussed. All questions answered. I have spent greater than 30 minutes on patient care today. Dr Rosales was available by phone for the evaluation of this patient. The time was used to review the medical records including relevant urine studies and Prescription history (MAPs), review of the available imaging, evaluation and examination of the patient, coordination of care with the medical staff and if applicable referring physicians, as well as creation of the medical record Home Medications: Ambulatory Orders DULoxetine HCL [Cymbalta] 60 mg PO QAM 05/25/19 Gabapentin [Neurontin] 600 mg PO HS 05/25/19 Multivitamins, Thera [Multivitamin (formulary)] 1 tab PO DAILY 05/25/19 Cyclobenzaprine [Flexeril] 5 mg PO TID PRN 05/22/21 Ergocalciferol (Vitamin D2) [Drisdol (50,000 Iu)] 1,250 mcg PO WEEKLY 05/22/21 Omeprazole 20 mg PO DAILY 05/22/21 Rosuvastatin [Crestor] 10 mg PO DAILY 03/14/23 Controlled Substance Measures - Controlled Substance Measures Is patient prescribed a controlled substance at discharge?: No
== END ==
LOC: PNWHC3 09:14
PROVIDERS: ATTEND Specialist
DX: M48.8X7 Other specified spondylopathies, lumbosacral region (principal); M54.2 Cervicalgia; E78.5 Hyperlipidemia, unspecified; K21.9 Gastro-esophageal reflux disease without esophagitis; F41.9 Anxiety disorder, unspecified
CPT/HCPCS: 99211

== ENCOUNTER 2023-03-24 09:06 | Day surgery (SDC) | payer OTHER ==
[2023-03-24] MEDS ORDERED: LACTATED RINGERS 1,000 ML IV ONE ×2 (10:00→10:50)
[2023-03-24 10:02] VITALS: TEMP 98.6
[2023-03-24] MEDS ORDERED: fentaNYL (PF) 50 MCG/ML 2 ML AMP ONE (10:35)
[2023-03-24] MEDS ORDERED: MIDAZOLAM 2 MG/2 ML VIAL ONE (10:35)
[2023-03-24] MEDS ORDERED: methylPREDNISolone ACETATE 40 MG/ML 1 ML VIAL ONE (10:35)
[2023-03-24] MEDS ORDERED: IOPAMIDOL M200 10 ML VIAL ONE (10:35)
--- NOTE | 2023-03-24 10:49 | P.PCN ---
Date of Procedure: 03/24/23 Procedure(s) Performed: PREOPERATIVE DIAGNOSIS : 1- Lumbar spondylosis with Facet Arthropathy without myelopathy . 2- Lumber degenerative disc disease POSTOPERATIVE DIAGNOSIS: 1- Lumbar spondylosis with Facet Arthropathy without myelopathy . 2- Lumber degenerative disc disease PROCEDURE: Diagnostic bilateral L3 , L4 , and L5 medial branch block under fluoroscopy guidance(fluoroscopy images available in the radiology Department ) ( To target the facet joint between Bilateral L4-5 , and L5-S1 )# 1st ANESTHESIA:moderate sedation with intravenous Versed 1 mg and Fentanyl 50 mcg. Sedation was started 1035, ended at 1046 EBL: Minimal COMPLICATION: None PROCEDURE INDICATION: Chronic low back pain secondary to Facet arthropathy unresponsive to conservative treatment. PROCEDURE DESCRIPTION: the patient was seen and identified in the preop holding area , risks and benefits and possible complications of the procedure and alternative were discussed with the patient, and the patient agreed to proceed with the procedure and signed the consent and vital signs monitored during the procedure and fluoroscopy was used to maximize the benefit and accuracy of the needle placement, and sedation was given to decrease patient anxiety, patient was taken to the procedure room and placed in prone position vital signs monitored in the back prepped with chlorhexidine X3 then under strict sterile technique using a right oblique fluoroscopy ,the junction of the transverse process and the superior articulating process of the right L3 , L4 , and L5 vertebra which corresponding to the fluoroscopy image of the eye of the Lanre dog on the block side for the medial branches and subsequently , after local infiltration of skin and subcu tissuies with Ropivacaine 0.5 % , one mL at each level ,then 22-gauge Quincke-type needles , 3 needle was used , each one of them placed at the junction of the base of the transverse process and the superior articular process at the appropriate level, and the needle was advanced until the periosteum contacted, needle placement confirmed with AP oblique and lateral view and after appropriate needle placement confirmed, and after negative aspiration for heme and CSF and there was no paresthesia 1-1/2 mL of Ropivacaine 0.5% mixed with 20 mg Depo-Medrol , then half mL injected at each level after negative aspiration the needle subsequently removed and the same procedure repeated for the left side at left side at L3 , L4 and L5 levels. At the end of the procedure and the needles removed and a bandage applied after the skin was cleaned the cleaning solution patient taken to recovery room in stable condition and monitors in the recovery room for 20-30 minutes and discharged home in stable condition after discharge criteria met and patient will follow up with the pain clinic in 2-4 weeks
[2023-03-24 11:11] VITALS: BP 112/74; PULSE 87; RESP 14
--- NOTE | 2023-03-24 12:28 | FL ---
EXAMINATION TYPE: FL guided pain mgmt statistic DATE OF EXAM: 03/24/2023 CLINICAL HISTORY: Low back pain. TECHNIQUE: Fluoroscopy. COMPARISON: None. FINDINGS: Fluoroscopic guidance was provided during pain relief procedure performed by Dr. Rosales . A total of 16.6 seconds of fluoroscopic time was utilized during the procedure and 4 spot images a re acquired. Images acquired shows needle localization at several levels in the lumbar spine. IMPRESSION: As Above. TOTAL DAP = 0.88370 mGy x m2
== END 2023-03-24 11:20 | disposition home or self-care (01) ==
LOC: ORPAIN 09:06
PROVIDERS: ATTEND Specialist
DX: M51.36 Other intervertebral disc degeneration, lumbar region (principal); M47.816 Spondylosis without myelopathy or radiculopathy, lumbar region; G89.29 Other chronic pain
CPT/HCPCS: 99152; 64494 ×2; 64493; J2250; J1030; J3010; Q9966

== ENCOUNTER → 2023-04-13 | Outpatient (CLI) | payer OTHER ==
[2023-04-13 13:35] VITALS: BP 105/73; PULSE 96; RESP 18; TEMP 98.3
--- NOTE | 2023-04-13 15:03 | P.PAINPG ---
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 Pt states she experienced 95 % pain relief x 24 hrs s/p procedure. Pain level is provoked at 8 /10 in intensity, constant, localized in the lumbar spine, achy, throbbing in character w shooting towards the BL glutes. Pain is provoked by over activity. Pain is alleviated with heat, ice, medications, PT integrated w massage x 6 wks in Jan 2023, reclining, repositioning and rest. Interventional pain procedures completed include BL MBB L3-L5 x1 Patient is currently on Advil, Motrin, Neurontin, Cymbalta Patient denies any side effects of the medication(s), denies excessive drowsiness or sleepiness, denies suicidal ideation and reports that the current pain medication is helping to control the pain and improve activities of daily living. Patient denies any motor or sensory deficits. Patient denies any fever or night sweats, denies any change in the bowel movements or urination. Physical Examination: -Constitutional: Cooperative. Not in acute distress . - Neurologic: Cranial nerve II to XII intact. No focal neurological deficits. - Psychatric: Alert & oriented x 3. Matching mood & appropriate affect. Judgment and insight intact. - Musculoskeletal: Cervical spine: Muscle bulk/ tone/ strength in the bilateral upper extremities normal Vertebral body tenderness to palpation over Spurling test positive Distraction test positive Facet loading test positive TTP Thoracic spine Muscle bulk / tone/ strength in the bilateral paraspinal muscles normal Vertebral body tender to palpation over Facet loading test positive TTP Lumbar spine: Motor bulk/ tone/ strength lower extremities , thigh and legs : 5/5 Deep tendon reflexes : Normal Knee Jerk. Normal Ankle Jerk . Vertebral body tenderness to palpation over Blanca Test positive Lumbar Facet Loading Test positive over BL L4-L5, L5-S1 Straight Leg Raise: positive at 30 degrees right side/ left side Gaenslen's Test positive Sacral spine : Severe tenderness over the Sacroiliac joint: right side / left side Range of motion: Flexion of the lumbar spine <60 degrees Range of motion: Extension of the lumbar spine <20 degrees Gaenslen's Test positive right side / left side Halie test: positive right side / left side Thigh Thrust Test positive right side / left side Sacral Thrust Test positive right side / left side Assessment and plan: Chronic LBP secondary to lumbar DDD, spondylosis with facet arthropathy without myelopathy Recommendation of BL MBB L4-L5, L5-S1 #2. May need a series of injections, up until RFA, for optimal pain relief. Risks, benefits of procedure discussed and pt verbalized understanding. Admits to anticoagulant use or medical history of diabetes. Protocol for discontinuation/ continuation of medications silvio procedure discussed. Minimal anesthesia provided, if clinically indicated, consisting of Versed and Fentanyl. All questions answered. I have spent less than 30 minutes on patient care today. Dr Rosales was available by phone for the evaluation of this patient. The time was used to review the medical records including relevant urine studies and Prescription history (MAPs), review of the available imaging, evaluation and examination of the patient, coordination of care with the medical staff and if applicable referring physicians, as well as creation of the medical record PQRS Narrative: Hx Alcohol Use (MH) No Home Medications: Ambulatory Orders DULoxetine HCL [Cymbalta] 60 mg PO QAM 05/25/19 Gabapentin [Neurontin] 600 mg PO HS 05/25/19 Multivitamins, Thera [Multivitamin (formulary)] 1 tab PO DAILY 05/25/19 Cyclobenzaprine [Flexeril] 5 mg PO TID PRN 05/22/21 Ergocalciferol (Vitamin D2) [Drisdol (50,000 Iu)] 1,250 mcg PO WEEKLY 05/22/21 Omeprazole 20 mg PO DAILY 05/22/21 Rosuvastatin [Crestor] 10 mg PO DAILY 03/14/23 Controlled Substance Measures - Controlled Substance Measures Is patient prescribed a controlled substance at discharge?: No
== END ==
LOC: PNWHC3 09:46
PROVIDERS: ATTEND Specialist
DX: M51.36 Other intervertebral disc degeneration, lumbar region (principal); M47.816 Spondylosis without myelopathy or radiculopathy, lumbar region; G89.29 Other chronic pain
CPT/HCPCS: 99211

== ENCOUNTER → 2023-04-22 | Day surgery (SDC) | payer OTHER ==
[~2023-04-22] MED LIST changes: +LACTATED RINGERS 1,000 ML IV ONE; +LIDOCAINE 1% (10MG/ML) FOR IV START INTRADERMA PRN; -LIDOCAINE 1% 20 ML VIAL (10MG/ML) FOR IV START INTRADERMA PRN; +MIDAZOLAM 2 MG/2 ML VIAL ONE; +ROPIVACAINE 5 MG/ML 20 ML AMPULE ONE; +fentaNYL (PF) 50 MCG/ML 2 ML AMP ONE; +methylPREDNISolone ACETATE 40 MG/ML 1 ML VIAL ONE
[2023-04-22 10:40] VITALS: RESP 16; TEMP 97.7
--- NOTE | 2023-04-22 11:47 | P.PCN ---
Date of Procedure: 04/22/23 Procedure(s) Performed: PREOPERATIVE DIAGNOSIS : 1- Lumbar spondylosis with Facet Arthropathy without myelopathy . 2- Lumber degenerative disc disease POSTOPERATIVE DIAGNOSIS: 1- Lumbar spondylosis with Facet Arthropathy without myelopathy . 2- Lumber degenerative disc disease PROCEDURE: Diagnostic bilateral L3 , L4 , and L5 medial branch block under fluoroscopy guidance(fluoroscopy images available in the radiology Department ) ( To target the facet joint between Bilateral L4-5 , and L5-S1 )# 2nd ANESTHESIA: Monitored anesthesia care as per anesthesia department. EBL: Minimal COMPLICATION: None PROCEDURE INDICATION: Chronic low back pain secondary to Facet arthropathy unresponsive to conservative treatment. PROCEDURE DESCRIPTION: the patient was seen and identified in the preop holding area , risks and benefits and possible complications of the procedure and alternative were discussed with the patient, and the patient agreed to proceed with the procedure and signed the consent and vital signs monitored during the procedure and fluoroscopy was used to maximize the benefit and accuracy of the needle placement, and sedation was given to decrease patient anxiety, patient was taken to the procedure room and placed in prone position vital signs monitored in the back prepped with chlorhexidine X3 then under strict sterile technique using a right oblique fluoroscopy ,the junction of the transverse process and the superior articulating process of the right L3 , L4 , and L5 vertebra which corresponding to the fluoroscopy image of the eye of the Lanre dog on the block side for the medial branches and subsequently , after local infiltration of skin and subcu tissuies with Ropivacaine 0.5 % , one mL at each level ,then 22-gauge Quincke-type needles , 3 needle was used , each one of them placed at the junction of the base of the transverse process and the superior articular process at the appropriate level, and the needle was advanced until the periosteum contacted, needle placement confirmed with AP oblique and lateral view and after appropriate needle placement confirmed, and after negative aspiration for heme and CSF and there was no paresthesia 1-1/2 mL of Ropivacaine 0.5% mixed with 20 mg Depo-Medrol , then half mL injected at each level after negative aspiration the needle subsequently removed and the same procedure repeated for the left side at left side at L3 , L4 and L5 levels. At the end of the procedure and the needles removed and a bandage applied after the skin was cleaned the cleaning solution patient taken to recovery room in stable condition and monitors in the recovery room for 20-30 minutes and discharged home in stable condition after discharge criteria met and patient will follow up with the pain clinic in 2-4 weeks
--- NOTE | 2023-04-22 11:59 | FL ---
EXAMINATION TYPE: FL guided pain mgmt statistic DATE OF EXAM: 04/22/2023 HISTORY: Fluoroscopy time Total dose area product (DAP) in uGy*m?, mGy*cm? (or similar): 0.39583 IMPRESSION: 1. Fluoroscopy time.
[2023-04-22 12:06] VITALS: BP 111/75; PULSE 80
== END ==
LOC: ORPAIN 10:10
PROVIDERS: ATTEND Specialist
DX: M51.36 Other intervertebral disc degeneration, lumbar region (principal); M47.817 Spondylosis without myelopathy or radiculopathy, lumbosacral region; G89.29 Other chronic pain; E78.5 Hyperlipidemia, unspecified; Z79.899 Other long term (current) drug therapy
CPT/HCPCS: 64493; 64494 ×2; J2250; J1030; J3010; J2795

== ENCOUNTER → 2023-05-16 | Outpatient (CLI) | payer OTHER ==
[2023-05-16 12:23] VITALS: BP 109/74; PULSE 99; RESP 16; TEMP 98.1
--- NOTE | 2023-05-16 14:40 | P.PAINPG ---
Objective - Vital Signs Vital signs: Intake & Output 05/15/23 05/16/23 05/16/23 18:59 06:59 18:59 Weight 68.039 kg PQRS Measure Charge Sheet Comment: A 62 yr old female w daughter on the phone with a history of severe and chronic LBP x years secondary to lumbar DDD and spondylosis with facet arthropathy without myelopathy presents today for evaluation s/p BL MBB L4-L5, L5-S1 #2. Pt states she experienced 90 % pain relief x 4days s/p procedure. Pain level is provoked at 6 /10 in intensity, constant, localized in the lumbar spine, achy, throbbing in character w shooting towards the BLEs, L > R. Pain is provoked by over activity. Pain is alleviated with heat, ice, medications, PT integrated w massage x 6 wks in Jan 2023, reclining, repositioning and rest. Oswestry axial pain score of 31. Interventional pain procedures completed include BL MBB L3-L5 x2 Patient is currently on Advil, Motrin, Neurontin, Cymbalta Patient denies any side effects of the medication(s), denies excessive drowsiness or sleepiness, denies suicidal ideation and reports that the current pain medication is helping to control the pain and improve activities of daily living. Patient denies any motor or sensory deficits. Patient denies any fever or night sweats, denies any change in the bowel movements or urination. Physical Examination: -Constitutional: Cooperative. Not in acute distress . - Neurologic: Cranial nerve II to XII intact. No focal neurological deficits. - Psychatric: Alert & oriented x 3. Matching mood & appropriate affect. Judgment and insight intact. - Musculoskeletal: Cervical spine: Muscle bulk/ tone/ strength in the bilateral upper extremities normal Vertebral body tenderness to palpation over Spurling test positive Distraction test positive Facet loading test positive TTP Thoracic spine Muscle bulk / tone/ strength in the bilateral paraspinal muscles normal Vertebral body tender to palpation over Facet loading test positive TTP Lumbar spine: Motor bulk/ tone/ strength lower extremities , thigh and legs : 5/5 Deep tendon reflexes : Normal Knee Jerk. Normal Ankle Jerk . Vertebral body tenderness to palpation over Blanca Test positive Lumbar Facet Loading Test positive over BL L4-L5, L5-S1 Straight Leg Raise: positive at 30 degrees right side/ left side Gaenslen's Test positive Sacral spine : Severe tenderness over the Sacroiliac joint: right side / left side Range of motion: Flexion of the lumbar spine <60 degrees Range of motion: Extension of the lumbar spine <20 degrees Gaenslen's Test positive right side / left side Halie test: positive right side / left side Thigh Thrust Test positive right side / left side Sacral Thrust Test positive right side / left side Assessment and plan: Chronic LBP secondary to lumbar DDD, spondylosis with facet arthropathy without myelopathy Recommendation of BL RFA L4-L5, L5-S. Pt exhibited sufficient and satisfactory pain relief s/p prior MBB procedures. Risks, benefits of procedure discussed and pt verbalized understanding. Admits to anticoagulant use or medical history of diabetes. Protocol for discontinuation/ continuation of medications silvio procedure discussed. Minimal anesthesia provided, if clinically indicated, consisting of Versed and Fentanyl. All questions answered. I have spent less than 30 minutes on patient care today. Dr Rosales was available by phone for the evaluation of this patient. The time was used to review the medical records including relevant urine studies and Prescription history (MAPs), review of the available imaging, evaluation and examination of the patient, coordination of care with the medical staff and if applicable referring physicians, as well as creation of the medical record PQRS Narrative: Hx Alcohol Use (MH) No Home Medications: Ambulatory Orders DULoxetine HCL [Cymbalta] 60 mg PO QAM 05/25/19 Gabapentin [Neurontin] 600 mg PO HS 05/25/19 Multivitamins, Thera [Multivitamin (formulary)] 1 tab PO QAM 05/25/19 Cyclobenzaprine [Flexeril] 5 mg PO HS PRN 05/22/21 Ergocalciferol (Vitamin D2) [Drisdol (50,000 Iu)] 1,250 mcg PO MO 05/22/21 Omeprazole 20 mg PO QAM 05/22/21 Rosuvastatin [Crestor] 10 mg PO QAM 03/14/23 Naproxen Sodium [Aleve] 1 tab PO Q8H PRN 04/19/23 Controlled Substance Measures - Controlled Substance Measures Is patient prescribed a controlled substance at discharge?: No
== END ==
LOC: PNWHC3 11:36
PROVIDERS: ATTEND Specialist
DX: M51.37 Other intervertebral disc degeneration, lumbosacral region (principal); M47.817 Spondylosis without myelopathy or radiculopathy, lumbosacral region; G89.29 Other chronic pain
CPT/HCPCS: 99211

== ENCOUNTER 2023-06-03 09:15 | Day surgery (SDC) | payer OTHER ==
[2023-06-01 15:47] VITALS: BMI 29.7
[~2023-06-03 09:15] MED LIST changes: -LACTATED RINGERS 1,000 ML IV ONE; -MIDAZOLAM 2 MG/2 ML VIAL ONE; -ROPIVACAINE 5 MG/ML 20 ML AMPULE ONE; -fentaNYL (PF) 50 MCG/ML 2 ML AMP ONE; -methylPREDNISolone ACETATE 40 MG/ML 1 ML VIAL ONE
[2023-06-03 09:33] VITALS: RESP 16; TEMP 98.5
[2023-06-03] MEDS ORDERED: MIDAZOLAM 2 MG/2 ML VIAL ONE (10:14)
[2023-06-03] MEDS ORDERED: fentaNYL (PF) 50 MCG/ML 2 ML AMP ONE (10:14)
[2023-06-03] MEDS ORDERED: methylPREDNISolone ACETATE 40 MG/ML 1 ML VIAL ONE (10:17)
[2023-06-03] MEDS ORDERED: ROPIVACAINE 5 MG/ML 20 ML AMPULE ONE (10:17)
--- NOTE | 2023-06-03 10:42 | P.PCN ---
Date of Procedure: 06/03/23 Procedure(s) Performed: PREOPERATIVE DIAGNOSIS: 1-Lumbar Spondylosis with Facet Arthropathy without myelopathy. 2- Lumber degenerative disc disease. POSTOPERATIVE DIAGNOSIS: 1- Lumbar Spondylosis with Facet Arthropathy without myelopathy. 2- Lumber degenerative disc disease. PROCEDURES : Bilateral Radiofrequency thermocoagulation, L3 , L4 , and L5 medial branch, with fluoroscopic guidance (fluoroscopy images available in the radiology department) ( to denervate the facet joint at bilateral L4-5 ,and L5-S1 levels ). ANESTHESIA: Monitored anesthesia care as per anesthesia department . EBL: Minimal PROCEDURE INDICATION: The patient with low back pain secondary to lumbar facet arthropathy who had more than 50% relief of her pain with previous diagnostic lumbar medial branch block with bupivacaine. PROCEDURE DESCRIPTION / TECHNIQUE: The patient was seen and identified in the preoperative area. Risks, benefits, complications, including but not limited to risk of infection ,bleeding , allergic reactions to the medications and no complete pain releife , and alternatives were discussed with the patient, the patient agreed to proceed with the procedure and signed the consent. IV was started. Vital signs remained stable throughout the procedure. Patient was taken to the OR and time out was completed. The patient was placed in the prone position on the procedure table. The lumber area was prepped and draped in the usual sterile fashion. . Vital signs were closely monitored during the procedure .IV sedation was used during the procedure to decrease patients anxiety. Using AP and then oblique fluoroscopy, the ``eye of the Lanre dog cor responding to the connection between the superior and transverse articular processes of right L3, L4, and L5 were identified, marked, and localized with 1% lidocaine. Subsequently, a 18 [id number] radiofrequency cannula with a 10- mm active tip was advanced guided by fluoroscopy to each of the``eyes of the Lanre dog at right L3, L4, and L5. Each site then underwent sensory testing at 50 Hz and 0 to 1 volt and motor testing at 2.5 Hz and 0 to 3 volt with local stimulation, but no radicular symptoms down the legs. Thereafter each sites underwent radiofrequency thermocoagulation at 80 degrees celsius for 90 seconds after injecting 0.5 ml of PF Ropivacaine 1ml, then after the thermocoagulation done , 1 ml of the block solution containing Depo-Medrol 20 mg and 3 ml of Ropivacaine 0.5% was injected at the right L3 , L4 , and L5 , levels after negative aspiration of CSF and blood and with no paresthesias. Cannulas were retracted while injecting lidocaine 1% until the needle is out. The same procedure was repeated at the level of Left L3, L4, and L5 levels. At the end of the procedure, the skin was cleansed and bandages were applied. COMPLICATIONS: No acute complications. DISPOSITION / PLANS: The patient was placed in a supine position and transferred to the recovery area in a stable condition for observation and was discharged from the recovery room after meeting discharge criteria. Home discharge instructions given to the patient by the staff. The patient was reexamined prior to discharge. The patient will schedule a follow up in the clinic in 2-4 weeks.
[2023-06-03] MEDS ORDERED: IV FLUID CONTINUATION 1,000 ML IV ONE (10:44)
--- NOTE | 2023-06-03 11:07 | FL ---
Intraoperative/procedural fluoroscopic services were provided for bilateral lumbar radiofrequency. To stepan fluoroscopy time is 12 seconds with a total of 8 submitted images to PACS. Total DAP 0.35053 mGym 2. Please see the operative note for further details.
[2023-06-03 11:16] VITALS: BP 107/74; PULSE 79
== END 2023-06-03 11:17 ==
LOC: ORPAIN 09:15
PROVIDERS: ATTEND Specialist
DX: M51.36 Other intervertebral disc degeneration, lumbar region (principal); M47.816 Spondylosis without myelopathy or radiculopathy, lumbar region; E78.5 Hyperlipidemia, unspecified; K21.9 Gastro-esophageal reflux disease without esophagitis; Z79.899 Other long term (current) drug therapy
CPT/HCPCS: 64635; 64636 ×2; J2250; J1030; J3010; J2795

== ENCOUNTER → 2023-06-23 | Outpatient (CLI) | payer OTHER ==
[2023-06-23 15:37] LABS: ALT 30 U/L (8-44); AST 36 U/L (13-35); Albumin 4.9 d/dL (3.8-4.9); Albumin/Globulin Ratio 1.96 Ratio (1.60-3.17); Alkaline Phosphatase 98 U/L (41-126); BUN/Creat Ratio 22.75 Ratio (12.00-20.00); Blood Urea Nitrogen 18.2 mg/dL (9.0-27.0); Carbon Dioxide 27.5 mmol/L (21.6-31.8); Chloride 101 mmol/L (96-109); Chol/HDL Ratio 2.29 Ratio; Creatine Kinase 613 U/L (26-186); Globulin 2.5 d/dL (1.6-3.3); Glucose 92 mg/dL (70-110); LDL Cholesterol,Calculated 78.1 mg/dL (0.0-131.0); Potassium 4.8 mmol/L (3.5-5.5); Sodium 140 mmol/L (135-145); Total Bilirubin 0.5 mg/dL (0.3-1.2); Total Protein 7.4 d/dL (6.2-8.2); VLDL Calculation 16.38 mg/dL (5.00-40.00)
[2023-06-23 17:53] LABS: Basophils # (A) 0.08 X 10*3/uL (0.00-0.10); Eosinophils # (A) 0.19 X 10*3/uL (0.04-0.35); Eosinophils % (A) 2.3 %; HCT 44.8 % (37.2-46.3); HGB 13.7 d/dL (12.0-15.0); Lymphocytes # (A) 2.28 X 10*3/uL (0.90-5.00); Lymphocytes % (A) 27.7 %; MCH 27.5 pg (27.0-32.0); MCHC 30.6 d/dL (32.0-37.0); Mean Platelet Volume 10.8 FL (9.5-12.2); Monocytes # (A) 0.54 X 10*3/uL (0.20-1.00); Monocytes % (A) 6.6 %; NRBC Per 100 WBC 0 X 10*3/uL (0.00-0.01); Neutrophils # (A) 5.11 X 10*3/uL (1.80-7.70); Neutrophils % (A) 62.2 %; Platelet Count 391 X 10*3/uL (140-440); RBC 4.98 X 10*6/uL (4.10-5.20); RDW 14.1 % (11.5-14.5); WBC 8.22 X 10*3/uL (4.50-10.00)
== END | disposition home or self-care (01) ==
LOC: LABWHC1 08:18
PROVIDERS: ATTEND Family Medicine
DX: Z00.00 Encounter for general adult medical examination without abnormal findings (principal); E55.9 Vitamin D deficiency, unspecified; K21.9 Gastro-esophageal reflux disease without esophagitis; E78.2 Mixed hyperlipidemia; R05.9 Cough, unspecified; R53.83 Other fatigue
CPT/HCPCS: 36415; 80053; 80061; 82306; 82550; 84443; 85025

== ENCOUNTER → 2023-06-23 | Outpatient (CLI) | payer OTHER ==
[2023-06-23 10:01] VITALS: BP 113/71; PULSE 87; RESP 15; TEMP 97.2
--- NOTE | 2023-06-23 13:11 | P.PAINPG ---
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 Pt states she experienced 95% pain relief s/p procedure. Pain level is provoked at 6 /10 in intensity, constant, localized in the R sacral area, achy, throbbing in character w shooting towards the BL buttocks. Pain is provoked by sitting. Pain is alleviated with heat, ice, medications, PT integrated w massage x 6 wks in Jan 2023, reclining, repositioning and rest. Oswestry axial pain score of 30. Interventional pain procedures completed include BL RFA L3-L5 Patient is currently on Advil, Motrin, Neurontin, Cymbalta Patient denies any side effects of the medication(s), denies excessive drowsiness or sleepiness, denies suicidal ideation and reports that the current pain medication is helping to control the pain and improve activities of daily living. Patient denies any motor or sensory deficits. Patient denies any fever or night sweats, denies any change in the bowel movements or urination. Physical Examination: -Constitutional: Cooperative. Not in acute distress . - Neurologic: Cranial nerve II to XII intact. No focal neurological deficits. - Psychatric: Alert & oriented x 3. Matching mood & appropriate affect. Judgment and insight intact. - Musculoskeletal: Cervical spine: Muscle bulk/ tone/ strength in the bilateral upper extremities normal Vertebral body tenderness to palpation over Spurling test positive Distraction test positive Facet loading test positive TTP Thoracic spine Muscle bulk / tone/ strength in the bilateral paraspinal muscles normal Vertebral body tender to palpation over Facet loading test positive TTP Lumbar spine: Motor bulk/ tone/ strength lower extremities , thigh and legs : 5/5 Deep tendon reflexes : Normal Knee Jerk. Normal Ankle Jerk . Vertebral body tenderness to palpation over Blanca Test positive Lumbar Facet Loading Test positive Straight Leg Raise: positive at 30 degrees right side/ left side Gaenslen's Test positive Sacral spine : Severe tenderness over the Sacroiliac joint: right side / left side Range of motion: Flexion of the lumbar spine <60 degrees Range of motion: Extension of the lumbar spine <20 degrees Gaenslen's Test positive right side / left side Halie test: positive right side / left side Thigh Thrust Test positive right side / left side Sacral Thrust Test positive right side / left side Assessment and plan: Chronic LBP secondary to lumbar DDD, spondylosis with facet arthropathy without myelopathy Recommendation of BL SI injection. May need a series of injections for optimal pain relief. Risks, benefits of procedure discussed and pt verbalized understanding. Admits to anticoagulant use or medical history of diabetes. Protocol for discontinuation/ continuation of medications silvio procedure discussed. Minimal anesthesia provided, if clinically indicated, consisting of Versed and Fentanyl. All questions answered. I have spent less than 30 minutes on patient care today. Dr Rosales was available by phone for the evaluation of this patient. The time was used to review the medical records including relevant urine studies and Prescription history (MAPs), review of the available imaging, evaluation and examination of the patient, coordination of care with the medical staff and if applicable referring physicians, as well as creation of the medical record PQRS Narrative: Hx Alcohol Use (MH) No Home Medications: Ambulatory Orders DULoxetine HCL [Cymbalta] 60 mg PO QAM 05/25/19 Gabapentin [Neurontin] 600 mg PO HS 05/25/19 Multivitamins, Thera [Multivitamin (formulary)] 1 tab PO QAM 05/25/19 Cyclobenzaprine [Flexeril] 5 mg PO HS PRN 05/22/21 Ergocalciferol (Vitamin D2) [Drisdol (50,000 Iu)] 1,250 mcg PO MO 05/22/21 Omeprazole 20 mg PO QAM 05/22/21 Rosuvastatin [Crestor] 10 mg PO QAM 03/14/23 Naproxen Sodium [Aleve] 1 tab PO DAILY PRN 04/19/23 Controlled Substance Measures - Controlled Substance Measures Is patient prescribed a controlled substance at discharge?: No
== END ==
LOC: PNWHC3 09:36
PROVIDERS: ATTEND Specialist
DX: M51.36 Other intervertebral disc degeneration, lumbar region (principal); M47.816 Spondylosis without myelopathy or radiculopathy, lumbar region; G89.29 Other chronic pain
CPT/HCPCS: 99211

== ENCOUNTER → 2023-07-18 | Outpatient (CLI) | payer OTHER | END | disposition home or self-care (01) | LOC: LABWHC1 10:02 | PROVIDERS: ATTEND Family Medicine | DX: R94.5 Abnormal results of liver function studies (principal) | CPT/HCPCS: 36415 ==

== ENCOUNTER → 2023-09-05 | Outpatient (CLI) | payer OTHER ==
[2023-09-05 09:46] VITALS: BP 112/83; PULSE 97; RESP 15; TEMP 98.2
--- NOTE | 2023-09-05 13:47 | P.PAINPG ---
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 Pain level is provoked at 6 /10 in intensity, consta nt, localized in the R sacral area, achy, throbbing in character w shooting towards the BL buttocks, R> L. Pain is provoked by sitting. Pain is alleviated with heat, ice, medications, PT integrated w massage x 6 wks in Jan 2023, reclining, repositioning and rest. Interventional pain procedures completed include BL RFA L3-L5, BL SI injection x1 Patient is currently on Advil, Motrin, Neurontin, Cymbalta Patient denies any side effects of the medication(s), denies excessive drowsiness or sleepiness, denies suicidal ideation and reports that the current pain medication is helping to control the pain and improve activities of daily living. Patient denies any motor or sensory deficits. Patient denies any fever or night sweats, denies any change in the bowel movements or urination. Physical Examination: -Constitutional: Cooperative. Not in acute distress . - Neurologic: Cranial nerve II to XII intact. No focal neurological deficits. - Psychatric: Alert & oriented x 3. Matching mood & appropriate affect. Judgment and insight intact. - Musculoskeletal: Cervical spine: Muscle bulk/ tone/ strength in the bilateral upper extremities normal Vertebral body tenderness to palpation over Spurling test positive Distraction test positive Facet loading test positive TTP Thoracic spine Muscle bulk / tone/ strength in the bilateral paraspinal muscles normal Vertebral body tender to palpation over Facet loading test positive TTP Lumbar spine: Motor bulk/ tone/ strength lower extremities , thigh and legs : 5/5 Deep tendon reflexes : Normal Knee Jerk. Normal Ankle Jerk . Vertebral body tenderness to palpation over Blanca Test positive Lumbar Facet Loading Test positive Straight Leg Raise: positive at 30 degrees right side/ left side Gaenslen's Test positive Sacral spine : Severe tenderness over the Sacroiliac joint: right side / left side Range of motion: Flexion of the lumbar spine <60 degrees Range of motion: Extension of the lumbar spine <20 degrees Gaenslen's Test positive right side / left side Halie test: positive right side / left side Thigh Thrust Test positive right side / left side Sacral Thrust Test positive right side / left side Assessment and plan: Chronic LBP secondary to lumbar DDD, spondylosis with facet arthropathy without myelopathy Recommendation of Behavioral health eval for SCS Trial Dx G89.4, M54.17 at [facility] janet Reyes. Video viewed and script provided. Would like to explore whether she is candidate for SI joint fusion also so contact info for Dr Landin provided. Pt will check w her insurance to find participating neurologists in the area for EMG testing and possible medication management. Minimal anesthesia provided, if clinically indicated, consisting of Versed and Fentanyl. All questions answered. I have spent less than 30 minutes on patient care today. Dr Rosales was available by phone for the evaluation of this patient. The time was used to review the medical records including relevant urine studies and Prescription history (MAPs), review of the available imaging, evaluation and examination of the patient, coordination of care with the medical staff and if applicable r eferring physicians, as well as creation of the medical record PQRS Narrative: Hx Alcohol Use (MH) No Home Medications: Ambulatory Orders DULoxetine HCL [Cymbalta] 60 mg PO QAM 05/25/19 Gabapentin [Neurontin] 600 mg PO HS 05/25/19 Multivitamins, Thera [Multivitamin (formulary)] 1 tab PO QAM 05/25/19 Cyclobenzaprine [Flexeril] 5 mg PO HS PRN 05/22/21 Ergocalciferol (Vitamin D2) [Drisdol (50,000 Iu)] 1,250 mcg PO MO 05/22/21 Omeprazole 20 mg PO QAM 05/22/21 Rosuvastatin [Crestor] 10 mg PO QAM 03/14/23 Naproxen Sodium [Aleve] 1 tab PO DAILY PRN 04/19/23 Controlled Substance Measures - Controlled Substance Measures Is patient prescribed a controlled substance at discharge?: No
== END ==
LOC: PNWHC3 08:01
PROVIDERS: ATTEND Specialist
DX: M46.1 Sacroiliitis, not elsewhere classified (principal); M51.36 Other intervertebral disc degeneration, lumbar region; M47.816 Spondylosis without myelopathy or radiculopathy, lumbar region; G89.29 Other chronic pain
CPT/HCPCS: 99211

== ENCOUNTER → 2024-04-24 | Outpatient (CLI) | payer OTHER ==
--- NOTE | 2024-04-25 08:36 | MM ---
Reason for Exam: Screening (asymptomatic). Last mammogram was performed 3 year(s) and 6 month(s) ago. Patient History: Menarche at age 15. First Full-Term at age 36. Late child-bearing (after 30). Postmenopausal. Patient has history of breast feeding. Risk Values: Morenita 5 year model risk: 1.9%. NCI Lifetime model risk: 8.6%. Prior Study Comparison: 03/22/2018 Bilateral Screening Mammogram, [facility]. 05/25/2019 Bilateral Screening Mammogram, [facility]. 10/09/2020 Bilateral Screening Mammogram, [facility]. Tissue Density: The breasts are heterogeneously dense, which may obscure small masses. Findings: Analyzed By CAD. There is no suspicious group of microcalcifications or new suspicious mass in either breast. Overall Assessment: Benign, BI-RAD 2 Management: Screening Mammogram of both breasts in 1 year. . Patient should continue monthly self-breast exams. A clinical breast exam by your physician is recommended on an annual basis. This exam should not preclude additional follow-up of suspicious palpable abnormalities. Note on Morenita scores and lifetime risk: 1. A Morenita score greater than 3% is considered moderate risk. If this is the case, consider specialist referral to assess eligibility for a risk reducing agent. 2. If overall lifetime risk for the development of breast cancer is 20% or higher, the patient may qualify for future screening with alternating mammogram and breast MRI. Electronically signed and approved by: Dequan Emanuel M.D. Radiologis
== END | disposition home or self-care (01) ==
LOC: RADMAMWWP 09:03
PROVIDERS: ATTEND Family Medicine
DX: Z12.31 Encounter for screening mammogram for malignant neoplasm of breast (principal); Z78.0 Asymptomatic menopausal state
CPT/HCPCS: 77067

== ENCOUNTER → 2025-05-01 | Outpatient (CLI) | payer OTHER ==
--- NOTE | 2025-05-01 15:52 | XR ---
EXAMINATION TYPE: XR finger RT DATE OF EXAM: 05/01/2025 3:39 PM INDICATION: Patient age:Female; 64 years old; Reason for study: [id number] RT FINGER PAIN; [facility]. pain COMPARISON: None TECHNIQUE: Frontal and lateral views of the second and third digits of the right hand were obtained. FINDINGS: Normal alignment of the visualized joints. No acute osseous pathology is identified. No e vidence of soft tissue swelling. No radiopaque foreign body. IMPRESSION: No acute osseous pathology. [facility], , 05/01/2025 3:50 PM
== END | disposition home or self-care (01) ==
LOC: RADXRYALE 15:21
PROVIDERS: ATTEND Physician Assistant Medical
DX: M79.644 Pain in right finger(s) (principal)